=== PATIENT | male | born 1950 | race Caucasian/White ===

== ENCOUNTER 2017-08-07 07:23 | Day surgery (SDC) | payer MEDICARE, OTHER ==
[2017-08-07] MEDS ORDERED: LACTATED RINGERS 1,000 ML IV ONE (08:34)
--- NOTE | 2017-08-07 08:52 | HISTORY & PHYSICAL EXAMINATION ---
HPI - History of Present Illness HPI Comment/Other: Julio is here for colonoscopy for positive cologuard. Current Meds: LIPITOR 40 MG ORAL TABLET (ATORVASTATIN CALCIUM) Take one tablet by mouth daily at bedtime COREG 12.5 MG ORAL TABLET (CARVEDILOL) 1.5 tablet twice daily po) ZOLPIDEM TARTRATE 10 MG ORAL TABLET (ZOLPIDEM TARTRATE) Take one tablet at night as needed for insomnia COZAAR 25 MG ORAL TABLET (LOSARTAN POTASSIUM) 1 tablet po daily SPIRONOLACTONE 25 MG ORAL TABLET (SPIRONOLACTONE) Take one half tablet by mouth daily NITROSTAT 0.4 MG SUBLINGUAL TABLET SUBLINGUAL (NITROGLYCERIN) one tab every 5 minutes prn chest discomfort. up to 3 if no relief call 9-11 ASPIRIN EC 81 MG ORAL TABLET DELAYED RELEASE (ASPIRIN) 1 po daily Past Medical History: Reviewed history from 10/26/2015 and no changes required: COPD (ICD-496) (YRV88-U41.9) Ischemic cardiomyopathy (ICD-414.8) (PCK70-S22.5) Bronchitis, acute (ICD-466.0) (XAJ61-G36.9) ACTINIC KERATOSIS (ICD-702.0) (GEW89-M39.0) INSOMNIA, UNSPECIFIED (ICD-780.52) (XDD05-Y19.00) CARCINOMA, PROSTATE (ICD-185) (JRM84-W43) CONGESTIVE HEART FAILURE (ICD-428.0) (ZOH91-D94.9) CAD (ICD-414.00) (IKM23-Z81.10) Pacemaker HI Heartburn Past Surgical History: Reviewed history and no changes required: Prostatectomy Angioplasty Stents Family History Summary: Reviewed history Last on 05/15/2017 and no changes required:07/02/2017 Father (biol.) - Has a Hx of Other Medical Problems - Entered On: 12/15/2014 Mother (biol.) - Has Family History of Other Medical Problems - Hx of stroke - Entered On: 07/02/2017 General Comments - FH: Father: CVA Mother: CVA Brother: DM Social History: Reviewed history and no changes required: Risk Factors: Smoked Tobacco Use: Former smoker Cigarettes: Yes -- 1 pack(s) per day, Year quit: 2011 Years Since Last Quit: 6 Drug use: no Alcohol use: no Exercise: yes Times per week: 1 Type of Exercise: Treadmill Physical Exam General: well developed, well nourished, in no acute distress Lungs: clear bilaterally to A & P Heart: regular rate and rhythm, S1, S2 without murmurs, rubs, gallops, or clicks Abdomen: bowel sounds positive; abdomen soft and non-tender without masses, organomegaly, or hernias noted Pulses: pulses normal in all 4 extremities Extremities: no clubbing, cyanosis, edema, or deformity noted with normal full range of motion of all joints Cervical Nodes: no significant adenopathy Psych: alert and cooperative; normal mood and affect; normal attention span and concentration Impression & Recommendations: Problem # 1: positive cologaurd will proceed with colonoscopy PMH/PSH - Past Medical History Cardiovascular: positive: Hypertension, Coronary artery disease, HI, Other Respiratory: positive: None Endocrine/Autoimmune: positive: None GI: positive: Hemorrhoids : positive: Benign prostate hypertrophy HEENT: positive: Chronic hearing loss Psych: positive: Claustrophobia Musculoskeletal: Derm: positive: Other MRSA Hx?: No - Past Surgical History General: positive: Colonoscopy Cardiovascular: positive: Coronary stent, Cardiac catheterization, Vascular surgery, Angioplasty, Other HEENT: positive: Tonsil/Adenoidectomy Meds/Allgy - Home Medications Home Medications: Ambulatory Orders Medication Instructions Recorded Confirmed Aspirin [Adult Aspirin Regimen] 81 mg PO DAILY 08/06/17 08/07/17 Atorvastatin [Lipitor] 10 mg PO DAILY 08/06/17 08/07/17 Carvedilol 12.5 mg PO BID 08/06/17 08/07/17 Losartan [Cozaar] 50 mg PO BID 08/06/17 08/07/17 Spironolactone 0.5 mg PO DAILY 08/06/17 08/07/17 - Allergies Allergies/Adverse Reactions: Allergies Allergy/AdvReac Type Severity Reaction Status Date / Time lorazepam AdvReac Anxiety Verified 08/07/17 08:28 Exam - Vital Signs Vital Signs: Vital Signs x48h Temp Pulse Resp BP Pulse Ox 08/07/17 08:11 36.6 C 72 16 117/80 95
[2017-08-07] MEDS ORDERED: MIDAZOLAM 2 MG/2 ML VIAL IVP ONE (09:00)
[2017-08-07] MEDS ORDERED: fentaNYL 100 MCG/2 ML VIAL IVP ONE (09:00)
[2017-08-07 09:57] VITALS: BP 104/58
== END 2017-08-07 07:24 | disposition home or self-care (01) ==
LOC: SDS 07:23
PROVIDERS: ATTEND Surgery
PROC: 0DBP8ZX Excision of Rectum, Via Natural or Artificial Opening Endoscopic, Diagnostic (ICD-10-PCS; 2017-08-07)
PROC: 0DBM8ZX Excision of Descending Colon, Via Natural or Artificial Opening Endoscopic, Diagnostic (ICD-10-PCS; 2017-08-07)
PROC: 3E0H8GC Introduction of Other Therapeutic Substance into Lower GI, Via Natural or Artificial Opening Endoscopic (ICD-10-PCS; 2017-08-07)
PROC: 0DBH8ZX Excision of Cecum, Via Natural or Artificial Opening Endoscopic, Diagnostic (ICD-10-PCS; principal; 2017-08-07 09:00)
DX: D12.0 Benign neoplasm of cecum (principal); D12.8 Benign neoplasm of rectum; D12.4 Benign neoplasm of descending colon; K57.30 Diverticulosis of large intestine without perforation or abscess without bleeding; K64.8 Other hemorrhoids; J44.9 Chronic obstructive pulmonary disease, unspecified; I50.9 Heart failure, unspecified; I25.10 Atherosclerotic heart disease of native coronary artery without angina pectoris; Z95.0 Presence of cardiac pacemaker; Z79.82 Long term (current) use of aspirin; Z85.46 Personal history of malignant neoplasm of prostate
CPT/HCPCS: 45380; 45381; 45385; J7120

== ENCOUNTER 2019-06-10 09:05 | Outpatient (CLI) | payer MEDICARE ==
[2019-06-10] MEDS ORDERED: IOVERSOL 320 100 ML VIAL IVP ONE ×2 (09:44→09:52)
--- NOTE | 2019-06-11 04:10 | CT Report ---
Reason: HEMATURIA, HX OF PROSTATE CA Procedure Date: 06/10/2019 Accession Number: [id number] / [id number] Procedure: CT - IVP CPT Code: Final Report FULL RESULT: EXAM: CT ABDOMEN AND PELVIS WITHOUT AND WITH CONTRAST (CT IVP) EXAM DATE: 06/10/2019 10:06 AM. CLINICAL HISTORY: HEMATURIA, HX OF PROSTATE CA. COMPARISONS: None. TECHNIQUE: Routine helical imaging was performed through the kidneys, ureters and bladder in the precontrast and delayed phase. IV Contrast: OPTI 320 100ML. Reconstructions: Coronal and sagittal. In accordance with CT protocol optimization, one or more of the following dose reduction techniques were utilized for this exam: automated exposure control, adjustment of mA and/or KV based on patient size, or use of iterative reconstructive technique. FINDINGS: Lung Bases: Possible emphysema. Calcified left ventricular aneurysm. Liver: No focal lesion identified. Gallbladder/Bile Ducts: Unremarkable. Spleen: Normal. Pancreas: Normal. Adrenal Glands: Normal. Kidneys/Bladder: Right Kidney/Ureter: No renal or ureteral stones. No hydronephrosis or hydroureter. No masses. Left Kidney/Ureter: No renal or ureteral stones. No hydronephrosis or hydroureter. Small cyst. No masses. Bladder: No stones. No wall thickening or mass. Peritoneal Cavity/Bowel: No bowel obstruction seen. No free air or free fluid. Colonic diverticula. No diverticulitis identified. No lymphadenopathy seen. Appendix appears normal. No masses or acute inflammatory process. Pelvic Organs: Status post prostatectomy. Vasculature: Severe atherosclerosis. Infrarenal aortic ectasia measuring up to 2.7 cm. High-grade stenosis or occlusion suspected in the iliac arteries bilaterally. 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 There probably are bilateral common iliac stents. Bones: Degenerative changes in the spine. Other: None. IMPRESSION: 1. No urinary tract stones, masses, or obstruction identified. 2. Status post prostatectomy. 3. Calcified left ventricular aneurysm. RADIA
== END 2019-06-10 09:06 | disposition home or self-care (01) ==
LOC: DI 09:05
PROVIDERS: ATTEND Family Medicine
DX: R31.9 Hematuria, unspecified (principal); Z85.46 Personal history of malignant neoplasm of prostate; Z90.79 Acquired absence of other genital organ(s); I25.3 Aneurysm of heart; I77.819 Aortic ectasia, unspecified site
CPT/HCPCS: 74178; Q9967

== ENCOUNTER 2019-10-29 04:48 | Outpatient (CLI) | payer MEDICARE | END 2019-10-29 04:49 | disposition critical access hospital (66) | LOC: EMS 04:48 | PROVIDERS: ATTEND Surgery | DX: R06.02 Shortness of breath (principal) | CPT/HCPCS: A0425; A0429 ==

== ENCOUNTER 2019-10-29 05:05 | Inpatient (IN) | payer MEDICARE ==
[2019-10-29] MEDS ORDERED: ALBUTEROL NEB 2.5 MG/3 ML INH ONE (05:16)
[2019-10-29] MEDS ORDERED: IPRATROPIUM 0.2 MG/ML NEB INH STA (05:16)
--- NOTE | 2019-10-29 05:21 | ED Physician Documentation ---
History of Present Illness - Stated complaint Stated Complaint: SOA - Chief complaint Chief Complaint: Resp - Additonal information Additional information: This is a 68-year-old male with a history of heart failure with ejection fraction reported at 25%, status post defibrillator placement, left-sided femoral bypass, history of OR, COPD, who presents with shortness of breath. Patient states that he woke up around an hour ago with his breathing feeling much worse than usual. He denies chest pain, leg pain, or leg swelling beyond his baseline mild left-sided swelling which is been present since his femoral bypass surgery. He denies fever. He has a chronic mild intermittent cough, no changes to this. He used a nebulizer treatment at home and this did improve his breathing mildly. He denies any history of blood clots. Review of Systems Constitutional: denies: Fever Throat: denies: Dental pain / toothache Cardiac: denies: Chest pain / pressure Respiratory: reports: Dyspnea GI: denies: Abdominal Pain Skin: denies: Rash Musculoskeletal: denies: Extremity pain Neurologic: denies: Generalized weakness PD PAST MEDICAL HISTORY - Past Medical History Cardiovascular: Hypertension, Coronary artery disease, OR, Other Respiratory: None Endocrine/Autoimmune: None GI: Hemorrhoids : Benign prostate hypertrophy HEENT: Chronic hearing loss Psych: Claustrophobia Musculoskeletal:  Derm: Other - Past Surgical History General: Colonoscopy Cardiovascular: Coronary stent, Cardiac catheterization, Vascular surgery, Angioplasty, Other HEENT: Tonsil/Adenoidectomy - Present Medications Home Medications: Ambulatory Orders Medication Instructions Recorded Confirmed Aspirin [Adult Aspirin Regimen] 81 mg PO DAILY 08/06/17 10/29/19 Atorvastatin [Lipitor] 10 mg PO DAILY 08/06/17 10/29/19 Carvedilol 12.5 mg PO BID 08/06/17 10/29/19 Spironolactone 0.5 tab PO DAILY 08/06/17 10/29/19 Atorvastatin Calcium [Lipitor] 40 mg DAILY 10/29/19 10/29/19 Carvedilol 0.5 tab BID 10/29/19 10/29/19 Simvastatin [Zocor] 40 mg DAILY 10/29/19 10/29/19 - Allergies Allergies/Adverse Reactions: Allergies Allergy/AdvReac Type Severity Reaction Status Date / Time lorazepam AdvReac Anxiety Verified 08/07/17 08:28 PD ED PE NORMAL - Vitals Vital signs reviewed: Yes - General General: Alert and oriented X 3 - HEENT HEENT: PERRL - Neck Neck: Supple, no meningeal sign - Cardiac Cardiac: RRR - Respiratory Respiratory: Other (Tachypneic, slightly increased work of breathing, there are expiratory wheezes on the right posterior michael.) - Abdomen Abdomen: Normal bowel sounds, Soft, Non tender, Non distended - Derm Derm: Warm and dry - Extremities Extremities: No deformity, Other (Trace edema on bilateral legs) - Neuro Neuro: Alert and oriented X 3 - Psych Psych: Normal mood, Normal affect Results - Vitals Vitals: Vital Signs - 24 hr 10/29/19 10/29/19 10/29/19 05:06 06:18 06:32 Temperature 36.5 C Heart Rate 110 H 86 86 Respiratory 28 H 18 Rate Blood Pressure 150/98 H 132/119 H O2 Saturation 100 98 10/29/19 10/29/19 06:48 07:00 Temperature Heart Rate 79 91 Respiratory 23 24 Rate Blood Pressure 105/68 114/76 O2 Saturation 99 99 Oxygen O2 Source BIPAP Oxygen Flow Rate 6 - EKG (time done) 5:18 Other comments: Other comments (There is 1 to 1.[address] elevation in V2 and V3 which is discordant with the QRS. There is questionable slight 0.[address] elevation in aVL, but movement artifact obscures fine detailed evaluation. There are T wave inversions in the lateral leads I and V6. We will repeat within 15 minutes. No past EKG for comparison.) 5:51 Other comments: Other comments (Rate 85, rhythm sinus, there is 0.[address] or [address] Elevation in aVL, there is [address] elevation in V3, within normal limits and discordant. There is [address] depression in the inferior leads. Does not meet STEMI criteria, but is concerning for ischemia.QTc 475.) - Labs Labs: Laboratory Tests 10/29/19 10/29/19 10/29/19 05:18 05:18 05:18 WBC 13.2 H RBC 4.05 L Hgb 12.1 L Hct 37.5 L MCV 92.6 MCH 29.9 MCHC 32.3 RDW 14.9 Plt Count 281 MPV 10.2 Neut # (Auto) 9.4 H Lymph # (Auto) 1.7 [place] # (Auto) 1.2 H Eos # (Auto) 0.7 Baso # (Auto) 0.1 Absolute Nucleated RBC 0.00 Nucleated RBC % 0.0 PT 12.7 H INR 1.1 Sodium 137 Potassium 4.3 Chloride 103 Carbon Dioxide 24 Anion Gap 10.0 BUN 22 H Creatinine 1.5 H Estimated GFR (MDRD) 46 L Glucose 131 H Calcium 8.7 Total Bilirubin 0.7 AST 16 ALT 14 Alkaline Phosphatase 64 Troponin I High Sens B-Natriuretic Peptide Total Protein 7.4 Albumin 3.8 Globulin 3.6 Albumin/Globulin Ratio 1.1 Lipase 20 L 10/29/19 10/29/19 05:18 05:18 WBC RBC Hgb Hct MCV MCH MCHC RDW Plt Count MPV Neut # (Auto) Lymph # (Auto) [place] # (Auto) Eos # (Auto) Baso # (Auto) Absolute Nucleated RBC Nucleated RBC % PT INR Sodium Potassium Chloride Carbon Dioxide Anion Gap BUN Creatinine Estimated GFR (MDRD) Glucose Calcium Total Bilirubin AST ALT Alkaline Phosphatase Troponin I High Sens 13.7 B-Natriuretic Peptide 1439 H Total Protein Albumin Globulin Albumin/Globulin Ratio Lipase - Rads (name of study) POCUS echo Radiology: Other (Moderately reduced left ejection fraction. B-lines are present on the bilateral anterior lung michael.) CXR Radiology: Other (Mild pulmonary edema.) PD MEDICAL DECISION MAKING - ED course Complexity details: considered differential (CHF, pneumonia, pneumothorax, ACS, dysrhythmia, pulmonary embolism, URI/coronavirus) ED course: Patient arrived and he is tachypneic, with increased work of breathing, he is on a nasal cannula at 6 L/min and satting in the low 90s but looks uncomfortable. EKG shows sinus rhythm with questionable ST elevation in aVL, however patient has no chest pain. Chest x-ray shows pulmonary edema he is hypertensive, and on his labs his BNP is elevated. At 6:10 AM, I reviewed the patient's case and EKG with Dr. Vazquez. Given the patient has no chest pain, and his EKG has only very slight less than [address] elevation in aVL, he feels that this is likely more strain related to the heart failure, and agrees that this does not appear to be a STEMI at this time. He recommends blood pressure control, such as with nitroglycerin and/or hydralazine, lasix, and agrees with bipap if warranted. Patient continued to have increased work of breathing so he was placed on BiPAP, and after nitroglycerin and Lasix he had improvement in his work of breathing. He continues to be chest pain-free. He was taken off the BiPAP and is doing well on a nasal cannula at this time. Although patient does have a history of prostate cancer which makes him at risk for pulmonary embolism, his lack of chest pain, as well as lack of any new unilateral leg swelling, as well as his improvement with therapies and his results today consistent with heart failure exacerbation make pulmonary embolism unlikely at this time. He has had no fever, no URI symptoms, coronavirus or infectious cause of his shortness of breath seems less likely at this time. Patient was admitted for further evaluation and treatment. Dr. Frausto accepting. Departure - Departure Disposition: [facility] DC/Xfer Clinical Impression: CHF exacerbation Qualifiers: Heart failure type: systolic Qualified Code(s): I50.23 - Acute on chronic systolic (congestive) heart failure Condition: Stable
[2019-10-29 05:23] LABS: BASOPHILS # (AUTO) 0.1 10^3/uL (0.0-0.1); BASOPHILS % (AUTO) 0.7 %; EOSINOPHILS # (AUTO) 0.7 10^3/uL (0.0-0.7); EOSINOPHILS % (AUTO) 5.6 %; HGB - HEMOGLOBIN 12.1 g/dL (14.0-18.0); LYMPHOCYTES # (AUTO) 1.7 10^3/uL (1.5-3.5); MEAN CORPUSCULAR HEMOGLOBIN 29.9 pg (27.0-31.0); MEAN CORPUSCULAR HGB CONC 32.3 g/dL (32.0-36.0); MEAN CORPUSCULAR VOLUME 92.6 fL (80.0-94.0); MEAN PLATELET VOLUME 10.2 fL (7.4-11.4); MONOCYTES # (AUTO) 1.2 10^3/uL (0.0-1.0); MONOCYTES % (AUTO) 9.1 %; NEUTROPHILS # (AUTO) 9.4 10^3/uL (1.5-6.6); NEUTROPHILS % (AUTO) 71.1 %; PLT - PLATELET COUNT 281 10^3/uL (130-450); RED BLOOD COUNT 4.05 10^6/uL (4.70-6.10); RED CELL DISTRIBUTION WIDTH 14.9 % (12.0-15.0); WHITE BLOOD COUNT 13.2 x10^3/uL (4.8-10.8)
[2019-10-29 05:29] LABS: INR 1.1 (0.8-1.2); PT - PROTHROMBIN TIME 12.7 secs (9.9-12.6)
[2019-10-29 05:33] LABS: ALBUMIN 3.8 g/dL (3.2-5.5); ALBUMIN/GLOBULIN RATIO 1.1 (1.0-2.2); BILIRUBIN,TOTAL 0.7 mg/dL (0.2-1.0); CALCIUM 8.7 mg/dL (8.5-10.3); CREATININE 1.5 mg/dL (0.6-1.2); TOTAL PROTEIN 7.4 g/dL (6.7-8.2)
--- NOTE | 2019-10-29 05:36 | XRAY Report ---
Reason: Chest Pain Procedure Date: 10/29/2019 Accession Number: [id number] / [id number] Procedure: XR - Chest 1 View X-Ray CPT Code: 59593 Final Report FULL RESULT: EXAM: CHEST RADIOGRAPHY EXAM DATE: 10/29/2019 05:25 AM CLINICAL HISTORY: Chest pain. COMPARISON: CHEST ONE VIEW 07/17/2019 9:51 AM. TECHNIQUE: 1 view. FINDINGS: Lungs/Pleura: Diffuse mild interstitial opacities. Small effusions. No gross pneumothorax. Mediastinum: Mild cardiomegaly. No mediastinal shift. Other: Stable left pacer/AICD. IMPRESSION: Mild CHF. RADIA
[2019-10-29] MEDS ORDERED: FUROSEMIDE 40 MG/4 ML VIAL IVP STA (05:45)
[2019-10-29] MEDS ORDERED: NITROGLYCERIN SL 0.4 MG TABLET SL STA (06:13)
[2019-10-29] MEDS ORDERED: SODIUM CHLORIDE FLUSH 0.9% 10 ML SYRINGE IVP PRN (08:20)
[2019-10-29] MEDS ORDERED: MORPHINE 2 MG/ML CARPUJECT IVP PRN (08:20)
[2019-10-29] MEDS ORDERED: LEVALBUTEROL 1.25 MG/3 ML NEB INH PRN (08:28)
[2019-10-29] MEDS ORDERED: LEVALBUTEROL 1.25 MG/3 ML NEB INH STA (08:28)
[2019-10-29] MEDS ORDERED: CARVEDILOL PO SCH (09:00)
[2019-10-29] MEDS ORDERED: ASPIRIN EC 81 MG TABLET PO SCH (09:00)
--- NOTE | 2019-10-29 10:28 | PHARMACY PROGRESS NOTE ---
- Best Possible Medication History Admit Date and Time: 10/29/19 0820 Processed by: Nursing Medication History completed: Yes Secondary Source(s): Pharmacy records, Insurance records As the person ultimately responsible for medication therapy, providers are able to order a medication from an existing home medication list in [facility] via the "Reconcile Routine" prior to Confirmation of that medication by it support technician. Such practice is discouraged except when the physician, in their clinical judgment, deems that a medical need exists for a medication without regard to previous use.
[2019-10-29] MEDS: carvediloL 12.5 MG TABLET PO SCH ×2 (11:15→20:42)
[2019-10-29] MEDS: ASPIRIN 325 MG TABLET PO SCH (11:15)
[2019-10-29] MEDS: SPIRONOLACTONE 25 MG TABLET PO SCH (11:17)
[2019-10-29] MEDS: NITROGLYCERIN 2% PASTE TOP SCH ×3 (11:18→22:00)
[2019-10-29] MEDS: polyethylene glycoL 3350 17 GM PACKET PO SCH (11:22)
[2019-10-29] MEDS: FUROSEMIDE 40 MG/4 ML VIAL IVP SCH (13:58)
[2019-10-29] MEDS: ACETAMINOPHEN 325 MG TABLET PO PRN (13:58)
--- NOTE | 2019-10-29 14:32 | HISTORY & PHYSICAL EXAMINATION ---
DATE OF SERVICE: 10/29/2019 Physician: Kari Frausto MD HISTORY OF PRESENT ILLNESS: This is a 68-year-old white male with a history of an WA approximately 10 years ago, history of peripheral vascular disease with femoral bypass done approximately 4 months ago and COPD, who is an ex-smoker. The patient presents with sudden shortness of breath that occurred when he woke up in the middle of the night and was coming back from the bathroom. He tried to lay in bed and was very orthopneic and needed to sit bolt upright. Since these feelings did not resolve, he called an ambulance and came to the Emergency Room. He was found to be hypertensive; no fever was found and chest x-ray showed pulmonary edema. He received IV Lasix, nitroglycerin and required BiPAP for oxygen supplementation. The Emergency Room doctor called the covering [employer] Inspector of this patient, who indicated that with the first troponin that was normal, the patient could be managed here for [id number] systolic heart failure. The patient is being admitted for flash pulmonary edema and is ruling in for an acute NSTEMI. PAST MEDICAL HISTORY: Prior WA "from a maker" he said, ejection fraction 25%; patient has a biventricular defibrillator according to his description. He has COPD, is an ex-smoker who quit about 10 years ago. The patient does daily 5 minutes of treadmill exercise in his house. The patient underwent recent fem- fem bypass 4 months ago and states that the recovery from this has been rather difficult with prolonged pain, especially when walking. The patient last saw his Z[employer] Inspector in 03/2019 and everything was stable. He cannot remember if he had any preop workup by Cardiology or Pulmonary before the fem-fem bypass done in 07/2019. The patient remembers having PFTs done sometime in 2019 and was recently started on an inhaler. The patient is compliant with his medications. ALLERGIES: LORAZEPAM. MEDICATIONS: 1. Losartan 25 mg b.i.d. 2. Lipitor 40 mg every night. 3. Spironolactone 12.5 mg daily. 4. Carvedilol 18.75 mg b.i.d. 5. Baby aspirin daily. 6. He is on an inhaler but cannot remember the name, which he uses b.i.d. FAMILY HISTORY: Positive history of early heart disease in his father and his brother. No other inherited diseases that he knows of. SOCIAL HISTORY: The patient is an ex-smoker who quit in 2010. The patient lives with his . 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 He exercises daily as described above. He drinks no alcohol whatsoever. He uses no recreational drugs. REVIEW OF SYSTEMS: The patient states that when he got the Lasix and nitroglycerin in the Emergency Room and had improvement in his air hunger with the BiPAP, he then developed a very mild chest heaviness, which he describes as a /10. It was in the same area but much milder than the chest pain he had with his WA in 2010, which he had described as a 10/10. There has been no recent dyspnea on exertion, leg edema, change of medications, travel, fever, cough, nausea, vomiting or diarrhea. A comprehensive review of systems was performed and the pertinent positives are listed; the rest are negative. PHYSICAL EXAMINATION: GENERAL: Elderly white male. He is currently in no distress, on nasal cannula oxygen. VITAL SIGNS: Blood pressure on presentation was 150/98 with a heart rate of 110 in sinus tachycardia. Currently, his blood pressure is 144/73 with a heart rate of 80 in sinus rhythm; room air saturation is 96% but respiratory rate is 24. Respiratory rate improved to 18 when he was put on 2 liters nasal cannula. HEENT: Unremarkable except for poor dentition. NECK: No JVD in a vertical position. No carotid bruits. CHEST: Bibasilar rales. Clear above that. He has increased AP diameter. HEART: Positive S4. Normal S1, S2. No heart murmurs noted. There is no RV heave. ABDOMEN: Soft, nontender. Positive bowel sounds. No organomegaly. EXTREMITIES: No clubbing, cyanosis or edema. NEUROLOGIC: Grossly intact. LABORATORY DATA: Sodium 137, potassium 4.3, BUN is 22, creatinine 1.5. Troponin high sensitivity is 13.7 and the next one is 374. BNP 1439. White blood count 13, hemoglobin 12 with a normal MCV, platelet count normal at 281. INR normal at 1.1. DIAGNOSTIC DATA: Chest x-ray showed CHF and mild cardiomegaly. EKG: Sinus rhythm, rate is 92, left IVCD, deep lateral Q-waves are noted and QS in V1 and V2 with poor R-wave progression V3 through V5. He has horizontal ST-depressions in leads II, III, AVF and deeply inverted T-wave in lead V5 and V6. He has minimal J-point elevation in leads V1 through V3. (This may indicate an aneurysm of the anterior apical wall). There are no prior EKGs for comparison. IMPRESSION/DIAGNOSES 1. Flash pulmonary edema. 2. Acute [id number]-wvookgwbg myocardial infarction. 3. Fgrgn-ud-znncdmp systolic heart failure with known left ventricular ejection fraction of 25% per the patient. 4. Abnormal EKG with evidence of prior myocardial infarction and also possible LV aneurysm. 5. Acute kidney injury. 6. History of peripheral vascular disease. 7. History of chronic obstructive pulmonary disease, no current exacerbation. PLAN: Admit the patient to a Med/Surg bed on telemetry. Cycle his troponins. Obtain an Echo to establish LV and RV contractility and PA pressure. Give the patient 4 baby aspirin now, since he has just had the results of the significant increase in troponin and is ruling in for an WA. Start nitro paste topically. Start therapeutic Lovenox dosing for acute WA management for 48 hours, at a renally adjusted dose of 0.5 mg/kg. Continue with his beta deny, SHYANN inhibitor, and Spironolactone. Begin IV b.i.d. Lasix. Follow I's and O's and daily weights. Follow electrolytes and daily magnesium. I will contact his [employer] Inspector regarding a potential transfer for elective coronary angiography. Check lipids and treat per guidelines. Continue with his current statin dose now. CODE STATUS: FULL CODE. DEEP VENOUS THROMBOSIS PROPHYLAXIS: SCDs. ATTESTATION: The patient is expected to be discharged or transferred to another facility within 96 hours: Yes. cc: Amarjit Jessica MD TD: 10/29/2019 13:48 MTDD
[2019-10-29] MEDS: LEVALBUTEROL 1.25 MG/3 ML NEB INH SCH ×3 (15:13→20:57)
[2019-10-29] MEDS: SODIUM CHLORIDE FLUSH 0.9% 10 ML SYRINGE IVP SCH ×2 (16:14→23:48)
--- NOTE | 2019-10-29 16:51 | HISTORY & PHYSICAL EXAMINATION ---
DATE OF SERVICE: 10/29/2019 Physician: Kari Frausto MD ADDENDUM: After discussion with the Pharmacist, at this creatinine clearance, his Lovenox dose can be 1 mg/kg which I will plan for 48 hours, then changed to prophylactic dose of 40 mg sq daily. TD: 10/29/2019 16:44 MTDD
[2019-10-29] MEDS: FAMOTIDINE 20 MG TABLET PO SCH (20:43)
[2019-10-29] MEDS: ENOXAPARIN 80 MG/0.8 ML SYRINGE SUBQ SCH (20:43)
[2019-10-29] MEDS ORDERED: ENOXAPARIN 30 MG/0.3 ML SYRINGE SUBQ SCH (21:00)
[2019-10-29] MEDS ORDERED: ATORVASTATIN 40 MG TABLET PO SCH (21:00)
[2019-10-30] MEDS: NITROGLYCERIN 2% PASTE TOP SCH ×3 (04:01→16:13)
[2019-10-30 05:45] LABS: CALCIUM 8.4 mg/dL (8.5-10.3); CREATININE 1.6 mg/dL (0.6-1.2); MAGNESIUM 1.7 mg/dL (1.7-2.8)
[2019-10-30] MEDS: FUROSEMIDE 40 MG/4 ML VIAL IVP SCH ×2 (05:54→13:22)
[2019-10-30] MEDS: ACETAMINOPHEN 325 MG TABLET PO PRN (06:58)
[2019-10-30] MEDS: LEVALBUTEROL 1.25 MG/3 ML NEB INH SCH ×3 (09:13→14:29)
[2019-10-30] MEDS: SPIRONOLACTONE 25 MG TABLET PO SCH (09:52)
[2019-10-30] MEDS: FAMOTIDINE 20 MG TABLET PO SCH (09:52)
[2019-10-30] MEDS: ASPIRIN 325 MG TABLET PO SCH (09:53)
[2019-10-30] MEDS: ENOXAPARIN 80 MG/0.8 ML SYRINGE SUBQ SCH (09:54)
[2019-10-30] MEDS: carvediloL 12.5 MG TABLET PO SCH (09:54)
[2019-10-30] MEDS: polyethylene glycoL 3350 17 GM PACKET PO SCH (09:55)
[2019-10-30] MEDS: SODIUM CHLORIDE FLUSH 0.9% 10 ML SYRINGE IVP SCH ×2 (09:56→17:33)
[2019-10-30] MEDS ORDERED: POTASSIUM CHLORIDE 20 MEQ TABLET PO SCH (12:24)
--- NOTE | 2019-10-30 16:11 | DISCHARGE SUMMARY ---
Discharge Summary Admit Date: 10/29/19 Discharge Date: 10/30/19 Discharging Provider: Dr Kari Frausto Primary Care Provider: Dr Wayne Jessica Code Status: Attempt Resuscitation Condition at Discharge: Stable Discharge Disposition: 02 Transfer Acute Care Hosp Discharge Facility Name: [facility] - DIAGNOSES Discharge Diagnoses with Status of Each Condition: see below - HPI History of Present Illness: This is a 68-year-old white male with history of prostate cancer, CAD, [place] in 2010 with stenting, subsequent EF 25% and he has a defibrillator. His last stress test was approximately 4 years ago. He also has COPD and underwent recent PFTs, results are not known but he was started on an inhaler several months ago. The patient had successful femoral revascularization for an occluded left femoral artery just done July 2019. The patient is compliant with his medications, and is able to exercise on his home treadmill 5 minutes daily. The patient presented after awakening with sudden orthopnea and came to the ER and was found to be in flash pulmonary edema. EKG showed an anterior scar vs anterior anuerysm, and non-specific changes. First high sensitivity troponin was 13 and the next went to 374. He was admitted for managing flash pulmonary edema and acute NSTEMI. - HOSPITAL COURSE Hospital Course: 1) Flash pulm edema His oxygen saturation and orthopnea symptoms improved with iv diuretics. He needed supplemental oxygen on BIPAP in the ER, but had improved to be on nasal cannula supplemental oxygen later that day. 2) Acute NSTEMI His hs-troponin went from 13>> 374>> 298. He was put on theraputic Lovenox bid for 48 hours, a statin, aspirin daily, and B-deny continued. An Echo was done that showed worsening of his LVEF to 15%. He was accepted for a coronary angio by his [facility] and then accepted in transfer by the Hospitalist at [facility] and transferred there in stable condition. 3) Acute on chronic systolic heart failure He got iv diuretics, Spironolactone was started, and he was kept on his B- deny and ARB. The BNP wenr from 1439 to 669 the following day. 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 5) FRANSICO The creat was monitored closely, it went from 1.5>> 1.6 while here. 6) PVD His meds for CAD also treat the PVD. 7) Hx COPD He had no exacerbation of COPD while here. 8) Hx prostate CA As per Hx. - ALLERGIES Allergies/Adverse Reactions: Allergies Allergy/AdvReac Type Severity Reaction Status Date / Time lorazepam AdvReac Anxiety Verified 08/07/17 08:28 - MEDICATIONS Home Medications: Ambulatory Orders Medication Instructions Recorded Confirmed Aspirin [Adult Aspirin Regimen] 81 mg PO DAILY 08/06/17 10/29/19 Carvedilol 18.75 mg PO BID 08/06/17 10/29/19 Spironolactone 12.5 mg PO DAILY 08/06/17 10/29/19 Atorvastatin Calcium 40 mg PO QPM 10/29/19 10/29/19 Losartan Potassium 25 mg PO BID 10/29/19 10/29/19 - PHYSICAL EXAM AT DISCHARGE General Appearance: positive: No acute distress, Alert Eyes Bilateral: positive: Normal inspection, EOMI ENT: positive: ENT inspection nml, No signs of dehydration Neck: positive: Nml inspection, No JVD Respiratory: positive: No respiratory distress Cardiovascular: positive: Regular rate & rhythm, No murmur Abdomen: positive: Non-tender, No organomegaly Skin: positive: Color nml Extremities: positive: No pedal edema, Other (Miuscle wasting) Neurologic/Psychiatric: positive: Oriented x3 (Non-focal exam) - LABS Result Diagrams: 10/29/19 05:18 10/30/19 04:30 - DIAGNOSTIC IMAGING Diagnostic Imaging Results: Final report reviewed - FOLLOW UP Follow Up: This will be determined after his stay at [facility]. - TIME SPENT Time Spent in Discharge (Minutes): 60
--- NOTE | 2019-10-30 16:11 | Discharge Plan ---
Discharge Plan Problem Reviewed?: Yes Disposition: 02 Transfer Acute Care Hosp Condition: Stable No Smoking: If you smoke, Please STOP! Call for help. Follow-up with: Amarjit Jessica MD [Primary Care Provider] -
[2019-10-30 17:13] VITALS: BP 137/73
[2019-10-30] MEDS ORDERED: ATORVASTATIN 40 MG TABLET PO SCH (21:00)
[2019-11-01] MEDS ORDERED: ENOXAPARIN 30 MG/0.3 ML SYRINGE SUBQ SCH (09:00)
[2019-11-01] MEDS ORDERED: ENOXAPARIN 40 MG/0.4 ML SYRINGE SUBQ SCH (09:00)
== END 2019-10-30 17:45 | disposition short-term general hospital (02) | DRG 280 ==
LOC: EDUNIT# → ED 05:05 → MS3 08:20
PROVIDERS: ADMIT Internal Medicine; ATTEND Internal Medicine
DX: I21.4 Non-ST elevation (NSTEMI) myocardial infarction (principal); I50.23 Acute on chronic systolic (congestive) heart failure; I25.3 Aneurysm of heart; N17.9 Acute kidney failure, unspecified; I11.0 Hypertensive heart disease with heart failure; J44.9 Chronic obstructive pulmonary disease, unspecified; I25.10 Atherosclerotic heart disease of native coronary artery without angina pectoris; I73.9 Peripheral vascular disease, unspecified; N40.0 Benign prostatic hyperplasia without lower urinary tract symptoms; F40.240 Claustrophobia; H91.90 Unspecified hearing loss, unspecified ear; Z79.51 Long term (current) use of inhaled steroids; Z79.82 Long term (current) use of aspirin; I25.2 Old myocardial infarction; Z95.810 Presence of automatic (implantable) cardiac defibrillator; Z95.5 Presence of coronary angioplasty implant and graft; Z95.828 Presence of other vascular implants and grafts; Z85.46 Personal history of malignant neoplasm of prostate; Z87.891 Personal history of nicotine dependence
CPT/HCPCS: 36415; 71045; 80048; 80053; 83690; 83735; 83880; 84484; 85025; 85610; 93005; 93306; 94640; 94660; 96374; 99284; 99285; A9270; J1650

== ENCOUNTER 2019-10-30 17:49 | Outpatient (CLI) | payer MEDICARE | END 2019-10-30 17:50 | disposition short-term general hospital (02) | LOC: EMS 17:49 | PROVIDERS: ATTEND Surgery | DX: J81.0 Acute pulmonary edema (principal); I21.4 Non-ST elevation (NSTEMI) myocardial infarction | CPT/HCPCS: A0425; A0426 ==

== ENCOUNTER 2020-06-12 18:20 | Outpatient (CLI) | payer MEDICARE | END 2020-06-12 18:21 | disposition home or self-care (01) | LOC: COV 18:20 | PROVIDERS: ATTEND Family Medicine | DX: R50.9 Fever, unspecified (principal); R05 Cough; R06.02 Shortness of breath; M79.10 Myalgia, unspecified site; R53.83 Other fatigue; Z20.828 Contact with and (suspected) exposure to other viral communicable diseases ==

== ENCOUNTER 2020-06-19 10:31 | Emergency (ER) | payer MEDICARE ==
--- NOTE | 2020-06-19 12:12 | ED Physician Documentation ---
PD HPI ABD PAIN - Stated complaint Stated Complaint: MALE - Chief complaint Chief Complaint: Abd Pain - History obtained from History obtained from: Patient - Additional information Additional information: He had femoral bypass surgery sometime ago and that caused what sounds like ureteral reflux or hydronephrosis on the right and he has had a stent in place for quite some time now it was replaced 4 weeks ago. Over the last 4 days he intermittently has severe suprapubic pain and profound urgency without significant back pain. He does have cloudy urine. No fevers. Review of Systems Ten Systems: 10 systems reviewed and negative Constitutional: reports: Reviewed and negative Cardiac: reports: Reviewed and negative Respiratory: reports: Reviewed and negative PD PAST MEDICAL HISTORY - Past Medical History Cardiovascular: Congestive heart failure, Hypertension, High cholesterol, Coronary artery disease, [place], Other Respiratory: COPD, Shortness of breath Endocrine/Autoimmune: None GI: Hemorrhoids : Benign prostate hypertrophy, Other HEENT: Chronic hearing loss Psych: Claustrophobia Derm: Other - Past Surgical History Past Surgical History: Yes General: Colonoscopy Cardiovascular: Coronary stent, Cardiac catheterization, Vascular surgery, Angioplasty, Other HEENT: Tonsil/Adenoidectomy - Present Medications Home Medications: Ambulatory Orders Medication Instructions Recorded Confirmed Aspirin [Adult Aspirin Regimen] 81 mg PO DAILY 08/06/17 10/29/19 Carvedilol 18.75 mg PO BID 08/06/17 10/29/19 Spironolactone 12.5 mg PO DAILY 08/06/17 10/29/19 Atorvastatin Calcium 40 mg PO QPM 10/29/19 10/29/19 Losartan Potassium 25 mg PO BID 10/29/19 10/29/19 Phenazopyridine HCl [Pyridium] 200 mg PO TID PRN #20 tablet 06/19/20 - Allergies Allergies/Adverse Reactions: Allergies Allergy/AdvReac Type Severity Reaction Status Date / Time lorazepam AdvReac Anxiety Verified 06/19/20 10:38 - Social History Does the pt smoke?: No Smoking Status: Former smoker Does the pt drink ETOH?: No Does the pt have substance abuse?: No - Immunizations Immunizations are current?: Yes - POLST Patient has POLST: No PD ED PE NORMAL - Vitals Vital signs reviewed: Yes - General General: Alert and oriented X 3, No acute distress - Abdomen Abdomen: Normal bowel sounds, Soft, Non tender, Other (Note made that bladder scan per tech is 19 mL) - Derm Derm: Normal color, Warm and dry - Extremities Extremities: No edema, No calf tenderness / cord - Neuro Neuro: Alert and oriented X 3, Normal speech Results - Vitals Vitals: Vital Signs - 24 hr 06/19/20 06/19/20 06/19/20 10:35 10:59 11:42 Temperature 35.8 C L 36.8 C Heart Rate 89 63 60 Respiratory 16 20 16 Rate Blood Pressure 112/63 136/67 H 124/64 O2 Saturation 98 99 99 06/19/20 13:15 Temperature Heart Rate 68 Respiratory 16 Rate Blood Pressure 133/73 H O2 Saturation 97 Oxygen O2 Source Room air - Labs Labs: Laboratory Tests 06/19/20 06/19/20 06/19/20 11:00 12:25 12:25 WBC 8.4 RBC 3.45 L Hgb 10.9 L Hct 32.4 L MCV 93.9 MCH 31.6 H MCHC 33.6 RDW 12.8 Plt Count 365 MPV 8.5 Neut # (Auto) 5.6 Lymph # (Auto) 1.2 L [place] # (Auto) 1.0 Eos # (Auto) 0.5 Baso # (Auto) 0.1 Absolute Nucleated RBC 0.00 Nucleated RBC % 0.0 Sodium 138 Potassium 4.6 Chloride 100 L Carbon Dioxide 25 Anion Gap 13.0 BUN 31 H Creatinine 1.6 H Estimated GFR (MDRD) 43 L Glucose 108 H Calcium 9.1 Urine Color YELLOW Urine Clarity CLOUDY Urine pH 6.0 Ur Specific [place] 1.020 Urine Protein 100 H Urine Glucose (UA) NEGATIVE Urine Ketones NEGATIVE Urine Occult Blood LARGE H Urine Nitrite NEGATIVE Urine Bilirubin NEGATIVE Urine Urobilinogen 0.2 (NORMAL) Ur Leukocyte Esterase LARGE H Urine RBC 6-10 H Urine WBC >25 H Ur Squamous Epith Cells NONE SEEN Urine Bacteria Moderate H Ur Microscopic Review INDICATED Urine Culture Comments INDICATED PD MEDICAL DECISION MAKING - ED course ED course: 69-year-old gentleman presents with what sounds like bladder spasms with 4-week old ureteral stent in place. Case was discussed by phone with Trsesa Titus on- call for his urologist who recommended checking a KUB and if okay treating symptomatically with Pyridium. NOTE: DR TITUS FEELS PYURIA IS EXPECTED AND DOES NOT NEED TREATMENT Departure - Departure Disposition: 01 Home, Self Care Clinical Impression: Bladder spasms Pain due to ureteral stent Qualifiers: Encounter type: initial encounter Qualified Code(s): T83.84XA - Pain due to genitourinary prosthetic devices, implants and grafts, initial encounter Condition: Good Record reviewed to determine appropriate education?: Yes Instructions: Stents Ureteral Prescriptions: Phenazopyridine HCl [Pyridium] 200 mg PO TID PRN #20 tablet PRN Reason: dysuria Comments: I spoke with Dr. Titus on-call for Dr. Pitt who recommended this medication. Your stent seems to be in place. Return if you worsen, or if you develop fever or significant back pain. Discharge Date/Time: 06/19/20 13:37
[2020-06-19 12:31] LABS: BASOPHILS # (AUTO) 0.1 10^3/uL (0.0-0.1); BASOPHILS % (AUTO) 0.6 %; EOSINOPHILS # (AUTO) 0.5 10^3/uL (0.0-0.7); EOSINOPHILS % (AUTO) 5.6 %; HGB - HEMOGLOBIN 10.9 g/dL (14.0-18.0); LYMPHOCYTES # (AUTO) 1.2 10^3/uL (1.5-3.5); LYMPHOCYTES % (AUTO) 13.9 %; MEAN CORPUSCULAR HEMOGLOBIN 31.6 pg (27.0-31.0); MEAN CORPUSCULAR HGB CONC 33.6 g/dL (32.0-36.0); MEAN CORPUSCULAR VOLUME 93.9 fL (80.0-94.0); MEAN PLATELET VOLUME 8.5 fL (7.4-11.4); MONOCYTES % (AUTO) 11.8 %; NEUTROPHILS # (AUTO) 5.6 10^3/uL (1.5-6.6); NEUTROPHILS % (AUTO) 67.4 %; PLT - PLATELET COUNT 365 10^3/uL (130-450); RED BLOOD COUNT 3.45 10^6/uL (4.70-6.10); RED CELL DISTRIBUTION WIDTH 12.8 % (12.0-15.0); WHITE BLOOD COUNT 8.4 x10^3/uL (4.8-10.8)
[2020-06-19 12:38] LABS: BILIRUBIN,URINE NEGATIVE (NEGATIVE); GLUCOSE, URINE (UA) NEGATIVE (NEGATIVE); KETONES,URINE (UA) NEGATIVE (NEGATIVE); LEUKOCYTE ESTERASE, URINE LARGE (NEGATIVE); NITRITE,URINE NEGATIVE (NEGATIVE); OCCULT BLOOD,URINE LARGE (NEGATIVE); PROTEIN,URINE 100 mg/dL (NEGATIVE); UROBILINOGEN,URINE 0.2 (NORMAL) E.U./dL (NORMAL)
[2020-06-19 12:39] LABS: CLARITY,URINE CLOUDY (CLEAR)
[2020-06-19 12:40] LABS: CALCIUM 9.1 mg/dL (8.5-10.3); CREATININE 1.6 mg/dL (0.6-1.2)
[2020-06-19 12:55] LABS: BACTERIA,URINE Moderate /HPF (None Seen); SQUAMOUS EPITHELIAL CELL,UR NONE SEEN (<= Few)
--- NOTE | 2020-06-19 13:16 | XRAY Report ---
PROCEDURE: Abdomen 1 View X-Ray INDICATIONS: check stent TECHNIQUE: 1 view of the abdomen were acquired. COMPARISON: CT IVP 06/10/2019 FINDINGS: Surgical changes and devices: A right ureteral double-J stent is seen in expected position. Multiple surgical clips are seen throughout the pelvis and the left paraspinal region. Bowel: No pneumoperitoneum. The bowel gas pattern is normal. Soft tissues: No masses; visualized solid organ contours appear normal in size. No suspicious abdom inal calcifications. Bones: No suspicious bony abnormalities. Degenerative changes are seen in the hips and spine. IMPRESSION: Right ureteral stent is in expected position. Reviewed by: Robles Collins MD on 06/19/2020 1:15 PM [facility] Approved by: Robles Collins MD on 06/19/2020 1:15 PM [facility] Station ID: [id number]
[2020-06-19 13:17] VITALS: BP 133/73
[2020-06-19] MEDS ORDERED: PHENAZOPYRIDINE 100 MG TABLET PO STA (13:20)
== END 2020-06-19 13:37 | disposition home or self-care (01) ==
LOC: ED 10:31
DX: N32.89 Other specified disorders of bladder (principal); T83.84XA Pain due to genitourinary prosthetic devices, implants and grafts, initial encounter; Y83.8 Other surgical procedures as the cause of abnormal reaction of the patient, or of later complication, without mention of misadventure at the time of the procedure; I10 Essential (primary) hypertension; Z79.82 Long term (current) use of aspirin; Z87.891 Personal history of nicotine dependence
CPT/HCPCS: 36415; 74018; 80048; 81001; 85025; 99284; A9270; 81003; 87086

== ENCOUNTER → 2022-06-26 | Outpatient (CLI) | payer MEDICARE | END | disposition short-term general hospital (02) | LOC: EMS 23:46 | DX: R07.89 Other chest pain (principal); R06.02 Shortness of breath | CPT/HCPCS: A0425; A0427 ==

== ENCOUNTER 2022-11-25 02:09 | Outpatient (CLI) | payer MEDICARE | END 2022-11-25 02:10 | disposition short-term general hospital (02) | LOC: EMS 02:09 | DX: I21.3 ST elevation (STEMI) myocardial infarction of unspecified site (principal) | CPT/HCPCS: A0425; A0427 ==

== ENCOUNTER 2023-06-12 10:20 | Outpatient (CLI) | payer MEDICARE ==
--- NOTE | 2023-06-12 15:28 | CT Report ---
PROCEDURE: Low Dose Lung Cancer Screen INDICATIONS: HIST OF SMOKING TECHNIQUE: A CT scan of the chest was performed. Intravenous contrast media was not administered. Images were re corded and evaluated at appropriate window settings. Reformats: axial MIP of the chest, coronal and s agittal. For radiation dose reduction, the following was used: automated exposure control, adjustment of mA and/or kV according to patient size. COMPARISON: None. FINDINGS: Image quality: Excellent. Prior cancer history: No Lungs and pleura: No suspicious pulmonary nodules or consolidation. Moderate apical predominant centr ilobular and paraseptal emphysema with biapical pleural-parenchymal scarring. A few scattered subcent imeter calcified granulomas. No pleural effusion or pneumothorax. Mild bilateral lower lobe and lingu la bronchiectasis with a few areas of mucous plugging. Central airways are patent. Mediastinum: Heart size is mildly enlarged. No pericardial effusion. No large vessel abnormality. No mediastinal adenopathy by size criteria. Moderate calcification of the thoracic aorta. Cardiac pacer electrode terminates in the pericardial fat (2). Left ventricular/pericardial calcification and p rominent convexity. Marked coronary vessel calcification. Small hiatal hernia. Chest wall and lower neck: Thyroid is unremarkable. No axillary or supraclavicular adenopathy by size . Bones: No acute fracture. No aggressive appearing lytic or blastic osseous lesion. Marked degenerativ e changes of the lower cervical spine. Mild to moderate multilevel degenerative changes of the thorac ic spine. Upper Abdomen: Limited noncontrast images demonstrate a partially visualized right ureteral stent. Mo derate calcification of the abdominal aorta and branch vessels. IMPRESSION: 1. No suspicious pulmonary nodules or consolidation. Lung RAD: 1 - Negative. Recommendation: Continue annual screening in 12 Months with LDCT 2. Moderate emphysema. 3. Left ventricular/pericardial calcification which may represent sequela of prior infarct. Marked co ronary vessel calcifications. Cardiac electrode terminates in the pericardial fat. Reviewed by: Geovany Johnston MD on 06/12/2023 3:26 PM PST Approved by: Geovany Johnston MD on 06/12/2023 3:26 PM PST Station ID: [id number]
== END 2023-06-12 10:21 | disposition home or self-care (01) ==
LOC: DI 10:20
PROVIDERS: ATTEND Physician Assistant
DX: Z12.2 Encounter for screening for malignant neoplasm of respiratory organs (principal); Z87.891 Personal history of nicotine dependence; J43.2 Centrilobular emphysema; I31.1 Chronic constrictive pericarditis; I25.10 Atherosclerotic heart disease of native coronary artery without angina pectoris; Z95.0 Presence of cardiac pacemaker

== ENCOUNTER 2025-01-16 11:58 | Inpatient (IN) ==
[2025-01-16] MEDS: IPRATROPIUM/ALBUTEROL 3 ML NEB INH STA (12:19)
--- NOTE | 2025-01-16 12:20 | ED Physician Documentation ---
PD HPI DYSPNEA Stated complaint Stated Complaint: SOA Chief complaint Chief Complaint: Resp History obtained from History obtained from: Patient Additional information Additional information: This is a very nice 74-year-old gentleman who has a history of COPD, and he presents today with shortness of breath that has been present for about a week along with some sensation of chest congestion. He has had a cough that occasionally has some [place] sputum but is mostly dry. He states that recently over the last year or so his activity tolerance has been poor but over the last week has been essentially nonexistent getting short of breath just doing things around the house. He states his temperature at home has been around 100, he denies any chest pain, no nasal congestion or sore throat. He uses Spiriva and a s needed albuterol at home, has not been using it more than normal however. Patient has a remote history of smoking but has stopped. Patient later tells me that he has also had some dark urine the last couple of days and feels like he is not voiding quite as easily as normal, perhaps not as much. He is not have any new flank pain, but always has some degree of low back pain. No urgency or frequency. He is on 80 mg of Lasix p.o. daily. He states he has been on this for quite some time, no change in his medication. He also takes 12.5 mg of spironolactone. He has not noted any lower extremity swelling. Denies any difficulty laying flat. Patient normally receives most of his care at [facility]. He sees a joint filler, urologist and home advisor there. He saw his joint filler just a few days ago, and is due to see his urologist later this month. He is unsure of his baseline renal function. Review of Systems Status of ROS: 10 or more systems reviewed and unremarkable except as noted in history and below Meds/Allgy Home Medications Ambulatory Orders Medication Instructions Recorded Confirmed aspirin 81 mg tablet,delayed 81 mg PO DAILY 08/06/17 0 10/29/19 release (Adult Aspirin Regimen) carvedilol 12.5 mg tablet 18.75 mg PO BID 08/06/17 spironolactone 25 mg tablet 12.5 mg PO DAILY 08/06/17 10/29/19 atorvastatin 40 mg tablet 40 mg PO QPM 10/29/19 losartan 25 mg tablet 25 mg PO BID 10/29/19 phenazopyridine 200 mg tablet 200 mg PO TID PRN dysuri a #20 tabs 06/19/20 (Pyridium) Allergies Allergies Allergy/AdvReac Type Severity Reaction Status Date / Time lorazepam AdvReac Anxiety Verified 01/16/25 12:09 PFSH Active Problems All Active Problems (Updated 01/16/25 @ 15:24 by SAHRA Perez) Influenza A (Acute) Acute kidney failure (Acute) Severe chronic obstructive pulmonary disease (Acute) Medical History Medical History (Updated 01/16/25 @ 15:24 by SAHRA Perez) COPD (chronic obstructive pulmonary disease) Surgical History Surgical History (Updated 01/16/25 @ 12:27 by Vidya Garcia RN) AICD (automatic cardioverter/defibrillator) present Social History Social History (Updated 01/16/25 @ 12:27 by Vidya Garcia RN) Smoking Status: Former smoker If you are a former smoker, when did you quit? (Date/Year): 2010 Number of Years Smoked: 40 How many cigarettes a day do you smoke? (20 cigarettes=1 Pk): 1 Do you dip or chew tobacco?: No Do you vape?: No Patient requests smoking cessation consult: No Initiate information on smoking cessation: No Relationship: Do you feel safe in your home environment?: Yes Suffered physical, verbal, emotional, or financial abuse?: No History of Abuse: No POLST Patient has POLST: No Exam Exam Vital Signs: Vital Signs x48h Temp Pulse Resp BP Pulse Ox O2 Flow Rate 01/16/25 15:16 84 16 124/64 93 2 01/16/25 12:19 77 22 2 01/16/25 12:13 2 01/16/25 12:09 37 C 72 24 124/64 92 Constitutional normal general appearance, no apparent distress and average body habitus HENMT normocephalic, nasal mucous membranes normal and oral mucous membranes normal Respiratory no wheezes, no rales and no retractions Severely diminished lung sounds, mild increased work of breathing, no audible wheezes. Cardiovascular normal heart rate noted, regular rhythm noted, no murmur, no JVD, peripheral pulses 2+ throughout and no edema Left chest pacemaker Gastrointestinal abdomen normal to inspection and abdomen soft to palpation Extremities normal to inspection and normal to palpation Skin skin color normal and no rash Results Vitals Vitals: Vital Signs - 24 hr 01/16/25 12:09 01/16/25 12:13 01/16/25 12:19 Temperature 37 C Temperature Source Temporal Artery Scan Pulse Rate 72 77 Respiratory Rate 24 22 Blood Pressure 124/64 O2 Saturation 92 Oxygen Delivery Method Nasal Cannula O2 Source Room air Nasal cannula If not protocol: Oxygen Flow, liters/minute 2 2 Pain Intensity 0 01/16/25 15:16 Temperature Temperature Source Pulse Rate 84 Respiratory Rate 16 Blood Pressure 124/64 O2 Saturation 93 Oxygen Delivery Method O2 Source Nasal cannula If not protocol: Oxygen Flow, liters/minute 2 Pain Intensity Oxygen O2 Source Nasal cannula EKG (time done) 1236: EKG releavant findings:: EKG personally interpreted by author of this note. Relevant findings are: Rate: Rate (enter#) (73) Rhythm: NSR Icard: Normal Intervals: Normal MA QRS: QRS normal Ischemia: Non specific changes Computer interpretation: Agree with computer Labs Labs: Laboratory Tests 01/16/25 01/16/25 01/16/25 12:20 13:48 14:30 WBC 8.0 RBC 3.67 L Hgb 11.1 L Hct 34.5 L MCV 94.0 MCH 30.2 MCHC 32.2 RDW 14.1 Plt Count 231 MPV 10.0 Neut # (Auto) 6.4 Lymph # (Auto) 0.7 L [place] # (Auto) 0.9 Eos # (Auto) 0.0 Baso # (Auto) 0.0 Absolute Nucleated RBC 0.00 Nucleated RBC % 0.0 Sodium 128 L Potassium 4.9 H Chloride 97 L Carbon Dioxide 20 L Anion Gap 11.0 BUN 81 H* Creatinine 3.6 H Estimated GFR (MDRD) 17 L Glucose 117 H Calcium 8.7 Troponin I High Sens 23.6 H* 22.0 H* Urine Color YELLOW Urine Clarity CLOUDY Urine pH 6.0 Ur Specific [place] 1.020 Urine Protein 100 H Urine Glucose (UA) 100 H Urine Ketones NEGATIVE Urine Occult Blood LARGE H Urine Nitrite NEGATIVE Urine Bilirubin NEGATIVE Urine Urobilinogen 0.2 (NORMAL) Ur Leukocyte Esterase SMALL H Urine RBC TNTC H Urine WBC 6-10 H Ur Epithelial Cells RARE Transitional Ur Squamous Epith Cells FEW Squamous Amorphous Sediment Marked Urine Bacteria Few Ur Microscopic Review INDICATED Urine Culture Comments INDICATED Nasal Adenovirus (PCR) NOT DETECTED Nasal B. parapertussis DNA (PCR) NOT DETECTED Nasal Coronavir 229E PCR NOT DETECTED Nasal Coronavir HKU1 PCR NOT DETECTED Nasal Coronavir NL63 PCR NOT DETECTED Nasal Coronavir OC43 PCR NOT DETECTED Nasal Enterovir/Rhinovir PCR NOT DETECTED Nasal Influ A H1 2009 PCR DETECTED A Nasal Influenza B PCR NOT DETECTED Nasal Parainfluen 1 PCR NOT DETECTED Nasal Parainfluen 2 PCR NOT DETECTED Nasal Parainfluen 3 PCR NOT DETECTED Nasal Parainfluen 4 PCR NOT DETECTED Nasal RSV (PCR) NOT DETECTED Nasal B.pertussis DNA PCR NOT DETECTED Nasal C.pneumoniae (PCR) NOT DETECTED Omega Human Metapneumo PCR NOT DETECTED Nasal M.pneumoniae (PCR) NOT DETECTED Nasal SARS-CoV-2 (PCR) NOT DETECTED Rads (name of study) CT abd, chest xray: Relevant Findings:: Final report received PD Medical Decision Making ED course Complexity details: reviewed results, re-evaluated patient, considered differential, d/w patient and d/w family ED course: 74-year-old male presents with shortness of breath, decreased activity tolerance, chest congestion, as well as some urinary symptoms as described in HPI. He is stable appearing here in physical exam, mildly Evoxac initially with SpO2 89 to 90% on room air, placed on 2 L nasal cannula with some improvement. He has diffusely diminished lung sounds and he was given a DuoNeb as well as Solu-Medrol with modest improvement. He is feeling substantially better at this time but continues to have an increased work of breathing, continues to require 2 L nasal cannula and labs are concerning for possible FRANSICO though I have no recent lab work available to me. Patient's CBC is stable with a white count of 8, hemoglobin 11.1 hematocrit 34.5, chemistry shows a sodium 128 potassium 4.9, CO2 20, BUN 81, creatinine 3.6, initial troponin 23.6, repeat 22. Urinalysis suggestive of possible infection with large amount of blood, 6-10 WBCs and small leuk esterase. Culture pending. Respiratory pathogen panel positive for influenza A which is likely contributing to symptoms. Started on ceftriaxone for possible UTI, started on Tamiflu due to duration of flu symptoms not clear he may benefit given his underlying history, and I recommended admission to the hospital for possible FRANSICO, influenza A, hypoxemic respiratory failure, and possible UTI. I have spoken with hospitalist, Soni, who very kindly agrees to admit this patient. Noted over the Discharge Plan Discharge Patient Disposition: 66 [facility] DC/Xfer Clinical Impression: Severe chronic obstructive pulmonary disease, Influenza A Acute kidney failure Qualifiers: Acute renal failure type: unspecified Qualified Code(s): N17.9 - Acute kidney failure, unspecified Prescriptions: No Action carvedilol 12.5 MG tablet 18.75 mg PO BID aspirin [Adult Aspirin Regimen] 81 MG tablet,delayed release (DR/EC) 81 mg PO DAILY spironolactone 25 MG tablet 12.5 mg PO DAILY atorvastatin 40 MG tablet 40 mg PO QPM losartan 25 MG tablet 25 mg PO BID phenazopyridine [Pyridium] 200 MG tablet 200 mg PO TID PRN (Reason: dysuria) Qty: 20 0RF Print Language: Vincentian
[2025-01-16 12:36] LABS: BASOPHILS % (AUTO) 0.3 %; EOSINOPHILS % (AUTO) 0.1 %; HCT - HEMATOCRIT 34.5 % (42.0-52.0); HGB - HEMOGLOBIN 11.1 g/dL (14.0-18.0); LYMPHOCYTES # (AUTO) 0.7 10^3/uL (1.5-3.5); LYMPHOCYTES % (AUTO) 8.3 %; MEAN CORPUSCULAR HEMOGLOBIN 30.2 pg (27.0-31.0); MEAN CORPUSCULAR HGB CONC 32.2 g/dL (32.0-36.0); MONOCYTES # (AUTO) 0.9 10^3/uL (0.0-1.0); MONOCYTES % (AUTO) 10.9 %; NEUTROPHILS # (AUTO) 6.4 10^3/uL (1.5-6.6); PLT - PLATELET COUNT 231 10^3/uL (130-450); RED BLOOD COUNT 3.67 10^6/uL (4.70-6.10); RED CELL DISTRIBUTION WIDTH 14.1 % (12.0-15.0)
--- NOTE | 2025-01-16 13:08 | XRAY Report ---
PROCEDURE: XR Chest 1V INDICATIONS: chest pain TECHNIQUE: One view of the chest was acquired. COMPARISON: 06/12/2023 FINDINGS AND IMPRESSION: Mild lower lung opacities possibly early airspace disease, atelectasis, or aspiration. Consider future imaging surveillance to assess for resolution. Normal heart size. Cardiac leads. Left chest wall pulse generator. Degenerative osseous changes. Reviewed by: Aguila Sapp MD on 01/16/2025 1:07 PM PDT Approved by: Aguila Sapp MD on 01/16/2025 1:07 PM PDT Station ID: [id number]
--- OUTSIDE RECORDS SUMMARY | 2025-01-16 13:09 | EXTERNAL MEDICAL SUMMARY RPT | Continuity of Care Document ---
Author Organization [facility] Address [address] [address] Phone Results/Labs test date facility value unit notes Result panel 1 NUCLEATED RED BLOOD CELLS AUTO 2025-01-16 12:20 [facility] 0.0 /100wbc (missing) BASOPHILS # (AUTO) 2025-01-16 12:20 [facility] 0.0 10 3/ul (missing) EOSINOPHILS # (AUTO) 2025-01-16 12:20 [facility] 0.0 10 3/ul (missing) NRBC ABSOLUTE COUNT (AUTO) 2025-01-16 12:20 [facility] 0 .00 x10 3/ul (missing) LYMPHOCYTES # (AUTO) 2025-01-16 12:20 [facility] 0.7 10 3/ul (missing) MONOCYTES # (AUTO) 2025-01-16 12:20 [facility] 0.9 10 3/ul (missing) MEAN PLATELET VOLUME 2025-01-16 12:20 [facility] 10.0 fl (missing) HGB - HEMOGLOBIN 2025-01-16 12:20 [facility] 11.1 g /dl (missing) RED CELL DISTRIBUTION WIDTH 2025-01-16 12:20 [facility] 14.1 % (missing) PLT - PLATELET COUNT 2025-01-16 12:20 [facility] 231 10 3/ul (missing) RED BLOOD COUNT 2025-01-16 12:20 [facility] 3.67 10 6/ul (missing) MEAN CORPUSCULAR HEMOGLOBIN 2025-01-16 12:20 [facility] 30.2 pg (missing) MEAN CORPUSCULAR HGB CONC 2025-01-16 12:20 [facility] 32 .2 g/dl (missing) HCT - HEMATOCRIT 2025-01-16 12:20 [facility] 34.5 % (missing) NEUTROPHILS # (AUTO) 2025-01-16 12[facility] 6.4 10 3/ul (missing) WHITE BLOOD COUNT 2025-01-16 12:20 [facility] [place] 8.0 x10 3/ul (missing) MEAN CORPUSCULAR VOLUME 2025-01-16 12:20 [facility] [place] 94.0 fl (missing) Social History date description facility
[2025-01-16 13:11] LABS: CALCIUM 8.7 mg/dL (8.5-10.3); CREATININE 3.6 mg/dL (0.6-1.3); POTASSIUM 4.9 mmol/L (3.5-4.5); TROPONIN I HIGH SENSITIVITY 23.6 ng/L (2.3-19.7)
[2025-01-16] MEDS: SODIUM CHLORIDE 0.9% 1,000 ML IV STA (13:26)
[2025-01-16 13:43] LABS: B. PARAPERTUSSIS- RESP PCR PAN NOT DETECTED; B. PERTUSSIS- RESP PCR PANEL NOT DETECTED; C. PNEUMONIAE- RESP PCR PANEL NOT DETECTED; CORONAVIRUS 229E-RESP PCR NOT DETECTED; CORONAVIRUS HKU1-RESP PCR NOT DETECTED; CORONAVIRUS NL63-RESP PCR NOT DETECTED; CORONAVIRUS OC43-RESP PCR NOT DETECTED; HUMAN METAPNEUMOVIRUS NOT DETECTED; INFLUENZA A H1 2009- RESP PCR DETECTED; INFLUENZA B - RESP PCR PANEL NOT DETECTED; M. PNEUMONIAE- RESP PCR PANEL NOT DETECTED; PARAINFLUENZA VIRUS 1 NOT DETECTED; PARAINFLUENZA VIRUS 2 NOT DETECTED; PARAINFLUENZA VIRUS 4 NOT DETECTED; RHINOVIRUS/ENTEROVIRUS NOT DETECTED; RSV- RESP PCR PANEL NOT DETECTED; SARS-CoV-2 -RESP PCR PANEL NOT DETECTED
--- NOTE | 2025-01-16 14:17 | CT Report ---
PROCEDURE: CT Abdomen/Pelvis WO INDICATIONS: FRANSICO, recurrent r stent issues TECHNIQUE: A CT scan of the abdomen and pelvis was performed without the use of intravenous contrast. Images were recorded and evaluated at appropriate window settings. Reformats: coronal and sagittal. For radiation dose reduction, the following was used: automated exposure control, adjustment of mA and/or kV according to patient size. COMPARISON: None. FINDINGS: Image quality: Diagnostic Lower chest: Bibasilar centrilobular nodules, mucous plugging and bronchial wall thickening likely infectious/inflammatory, partially seen. Pericardial calcifications and myocardial apex calcifications likely from prior infarct and inflammation Partially seen electrode leads. Liver: Solid organs are not well assessed without IV contrast. No contour deforming mass Gallbladder and biliary system: Unremarkable, nondilated Pancreas: No ductal dilation Spleen: Nonenlarged Adrenals: No discrete nodules Kidneys: No contour deforming solid mass. Left lower pole suspected cyst is present. No left hydronephrosis. A right ureter stent is present, in expected position. There is mild pelviectasis and ureteral ectasia, without definite obstructing calculus. Moderate right renal atrophy. Tiny nonobstructing calculus in the left posterior calyx. 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 Postsurgical changes are present, not well assessed on noncontrast study. No enlarged lymph nodes by size criteria. Bowel and peritoneum: No small bowel obstruction. No drainable abscess or ascites. There is a moderate rectal stool ball. Colonic diverticulosis. Body wall: Unremarkable Pelvis: Bladder is unremarkable. No definite calculi bladder stone. Prostate bed postsurgical changes, not well assessed on this study. There is questionable asymmetric soft tissue at the right side. Bones: Degenerative osseous findings. IMPRESSION: Right ureteral stent in place, in expected position. No definite obstructing stone identified. Mild ureter and renal pelvis ectasia. No left hydronephrosis. Slightly asymmetric soft tissue at the right posterior the bed, not well assessed on CT. Consider contrast-enhanced pelvis CT or PET CT follow-up for further evaluation depending on clinical context. Many other incidental findings described above. Reviewed by: Aguila Sapp MD on 01/16/2025 2:16 PM PDT Approved by: Aguila Sapp MD on 01/16/2025 2:16 PM PDT Station ID: [id number]
[2025-01-16] MEDS: OSELTAMIVIR 75 MG CAPSULE PO STA (14:41)
[2025-01-16 14:44] LABS: BILIRUBIN,URINE NEGATIVE (NEGATIVE); GLUCOSE, URINE (UA) 100 mg/dL (NEGATIVE); KETONES,URINE (UA) NEGATIVE (NEGATIVE); LEUKOCYTE ESTERASE, URINE SMALL (NEGATIVE); NITRITE,URINE NEGATIVE (NEGATIVE); OCCULT BLOOD,URINE LARGE (NEGATIVE); PROTEIN,URINE 100 mg/dL (NEGATIVE); UROBILINOGEN,URINE 0.2 (NORMAL) E.U./dL (NORMAL)
[2025-01-16 14:46] LABS: CLARITY,URINE CLOUDY (CLEAR)
[2025-01-16 14:58] LABS: AMORPHOUS SEDIMENT,UR Marked /LPF; BACTERIA,URINE Few /HPF (None Seen); EPITHELIAL CELLS,UR RARE Transitional /HPF (<= Few); RBC,URINE TNTC /HPF (0-5); SQUAMOUS EPITHELIAL CELL,UR FEW Squamous (<= Few)
[2025-01-16] MEDS: methylPREDNISolone SUCCINATE 125 MG/2 ML VIAL IVP STA (15:52)
[2025-01-16] MEDS: cefTRIAXone 1 GM in SODIUM CHLORIDE 0.9% MINIBAG 100 ML IV STA (15:52)
--- NOTE | 2025-01-16 16:36 | HISTORY & PHYSICAL EXAMINATION ---
Chief Complaint Chief Complaint Chief Complaint: shortness of air History of Present Illness Admitted From Admitted From:: home History Obtained From Records Reviewed: AVS from cardiology visit 01/07/25 History obtained from: patient and spouse at bedside History of Present Illness HPI Comment/Other: 74-year-old male with a past medical history of coronary artery disease, COPD, heart failure with reduced ejection fraction, CKD stage IV (I do not have accurate data on what his baseline GFR is.) chronic indwelling stents in his ureters, presents to the emergency department with cough and shortness of breath for 5 days now. His son got sick about a week ago and his got sick the day before he got sick. He has tested positive in the emergency department for influenza A. He is on chronic inhalers for his COPD. He is on diuretics for his heart failure with an ejection fraction around 20% and he has this history of renal insufficiency. He also has a history of peripheral vascular disease status post what sounds like iliac or femoral artery bypass. Presents to the ED with cough and chest congestion for duration of 5 days, it is getting worse. He has had poor appetite and has not been sleeping well secondary to the cough. He denies running any fevers at home. He took his Coreg and Entresto this morning but not take his diuretic therapy because he says he just has not been eating and drinking very well. He saw his operator helper at [facility] on January 07 and got a clean bill of health. He has an indwelling AICD. He states it has been several years since he had an echocardiogram. He has a history of prostate cancer which he has elected not to treat. He gets stents placed in his ureters every 6 months. On presentation to the ED he has labs which are significant for sodium of 128, potassium of 4.9, a creatinine of 3.6 (eGFR 17) and a troponin in the low 20s. His respiratory panel is positive for influenza A, his urinalysis is suggestive of urinary tract infection, culture pending, and his chest x-ray shows mild lower lung opacities. He also had a CT of the abdomen pelvis today which shows a right ureteral stent. The lower chest on the CT of the abdomen pelvis shows mucous plugging and bronchial wall thickening and there is moderate right renal atrophy He has not been having any paroxysmal nocturnal dyspnea. He has not been have any lower extremity swelling. He has not been having any chest pain. He has not been having any abdominal pain or difficulty urinating. His appetite has been poor. He lives at home with his Marlee. One of their adult children is currently staying with them due to life circumstances, and their other 2 children live fairly close by. Marlee is his surrogate medical decision maker should he be unable to make his own medical decisions. Patient states he is DNR and would never want to be placed on a ventilator. He has an AICD in place. He quit smoking in 2010. Never drinks alcohol never uses marijuana. He is relatively active for his age having recently built a shed in his backyard. He states he just needs to pace himself and he can do just about anything he wants to do. Meds/Allgy Home Medications Ambulatory Orders Medication Instructions Recorded Confirmed aspirin 81 mg tablet,delayed 81 mg PO DAILY 08/06/17 0 10/29/19 release (Adult Aspirin Regimen) carvedilol 12.5 mg tablet 18.75 mg PO BID 08/06/17 spironolactone 25 mg tablet 12.5 mg PO DAILY 08/06/17 10/29/19 atorvastatin 40 mg tablet 40 mg PO QPM 10/29/19 losartan 25 mg tablet 25 mg PO BID 10/29/19 phenazopyridine 200 mg tablet 200 mg PO TID PRN dysuri a #20 tabs 06/19/20 (Pyridium) Allergies Allergies Allergy/AdvReac Type Severity Reaction Status Date / Time lorazepam AdvReac Anxiety Verified 01/16/25 12:09 [facility] Active Problems All Active Problems (Updated 01/16/25 @ 16:58 by JAQUELINE Conway) Acute respiratory failure with hypoxia (Acute) COPD exacerbation (Acute) Urinary tract infection (Acute) Atypical pneumonia (Acute) Heart failure with reduced ejection fraction (HFrEF, <= 40%) (Acute) Hyperkalemia (Acute) Hyponatremia (Acute) Influenza A (Acute) Acute kidney failure (Acute) Severe chronic obstructive pulmonary disease (Acute) Medical History Medical History (Updated 01/16/25 @ 16:58 by JAQUELINE Conway) COPD (chronic obstructive pulmonary disease) Surgical History Surgical History (Updated 01/16/25 @ 12:27 by Vidya Garcia RN) AICD (automatic cardioverter/defibrillator) present Social History Social History (Updated 01/16/25 @ 12:27 by Vidya Garcia RN) Smoking Status: Former smoker If you are a former smoker, when did you quit? (Date/Year): 2010 Number of Years Smoked: 40 How many cigarettes a day do you smoke? (20 cigarettes=1 Pk): 1 Do you dip or chew tobacco?: No Do you vape?: No Patient requests smoking cessation consult: No Initiate information on smoking cessation: No Relationship: Do you feel safe in your home environment?: Yes Suffered physical, verbal, emotional, or financial abuse?: No History of Abuse: No POLST POLST CPR Status: Do Not Attempt Resuscitation (DNAR) / Allow Natural Patient has POLST: No Level of Medical Intervention: Selective Treatment (DNI. Bipap is fine. ) Review of Systems Status of ROS: 10 or more systems reviewed and unremarkable except as noted in history and below Prior Level of Functionality: Independent Exam Exam Vital Signs: Vital Signs x48h Temp Pulse Resp BP Pulse Ox O2 Flow Rate 01/16/25 15:16 84 16 124/64 93 2 01/16/25 12:19 77 22 2 01/16/25 12:13 2 01/16/25 12:09 37 C 72 24 124/64 92 Constitutional normal general appearance and no apparent distress Well-groomed, does not appear chronically ill. Thin male. HENMT normocephalic, head/scalp atraumatic, hearing grossly normal bilaterally, external ears normal and nasal mucous membranes normal Eyes PERRL and conjunctivae normal Neck/C-Spine visual inspection normal and trachea midline Lymph no lymphadenopathy noted Chest inspection of chest normal and palpation of chest normal Respiratory breath sounds equal bilaterally, normal respiratory effort and no use of accessory muscles Occasional rhonchi Cardiovascular normal heart rate noted Gastrointestinal abdomen normal to inspection and abdomen soft to palpation Back/Pelvis spine normal to inspection Extremities normal to inspection, normal to palpation and no tenderness No pedal edema Neurology silverware supervisor II-XII intact, no movement abnormality noted, no focal motor deficit noted, speech normal and GCS 15 Psychiatry mental status grossly normal, oriented x3, thought process normal, cooperative and memory normal Skin skin color normal and no rash Conclusion/Plan Problem List (1) Acute kidney failure: Plan: This patient has a history of stage IV chronic kidney disease. I am unclear what his baseline creatinine is. He presents with a creatinine of 3.6 and an estimated GFR of 17. He has ureteral stents in place and CT of the abdomen pelvis does not show any hydronephrosis and shows good placement of the stent. He has not been eating or drinking well secondary to his acute illness and this may be contributing to his acute kidney injury. He has received 1 L of IV fluids in the emergency department. He sees a senior corporate accountant at [facility]. His urologist is also at [facility]. My plan for his acute kidney failure is to trend his creatinine and potassium. Additionally I will support him with IV fluids, gently, as he does have a history of heart failure with reduced ejection fraction. I have ordered repeat BMP for the a.m. I have warned the patient that if his creatinine or potassium should continue to rise he will likely require transfer. He prefers transfer to [facility] but realizes that his preferred institution may not have a bed available. Qualifiers: Acute renal failure type: unspecified Qualified Code(s): N17.9 - Acute kidney failure, unspecified (2) Acute respiratory failure with hypoxia: Plan: This patient's presenting chief complaint today is shortness of air. He has a oxygen saturation of 89 to 90% on room air. He has a history of COPD making this an acceptable number for him. At home he is not on home oxygen therapy. Here he is satting in the mid 90s with 2 L via nasal cannula. His CO2 is actually slightly low on his admission labs at 20. He has some mild tachypnea on admission today with a respiratory rate of 24. His respiratory rate has normalized since presentation to the emergency department. He is no longer tachypneic. He appears to be breathing comfortably he is coughing frequently (3) Influenza A: Plan: Influenza A, community-acquired. He has been sick for 5 days, respiratory panel positive for influenza A. His got sick 6 days ago. And his son was the initial person in the household to get sick about a week ago. He denies fever at home, he admits to cough and poor appetite. He has also had fatigue and malaise. Given the severity of his illness we ordered Tamiflu at renal dosing, this is 30 mg daily. I will continue to monitor his respiratory status and treat him for a COPD exacerbation which is secondary to this influenza A infection (4) Atypical pneumonia: Plan: White blood cell count is within normal limits. His CT of the abdomen and pelvis is significant for bibasilar centrilobular nodules, mucous plugging and bronchial wall thickening which is likely infectious/inflammatory. Could be secondary to the influenza A could also be an atypical pneumonia presentation. I am starting this patient on a 3-day course of azithromycin. He is also getting bronchodilators and steroids, see below. (5) COPD exacerbation: Plan: This patient has a history of COPD. He has been a non-smoker since 2010. At home he is on albuterol inhaler as needed as well as Stiolto Respimat 2.5/2.5. He is having decreased exercise tolerance and cough. His imaging is significant for possible atypical pneumonia. He is positive for influenza A. All of this is causing his COPD exacerbation. I have ordered DuoNeb treatments every 4 hours. I have ordered inhaled budesonide as well as Solu-Medrol 40 mg IV 3 times daily. He will receive steroid duration of therapy of less than 5 days. (6) Hyponatremia: Plan: Sodium of 128. I do not know if this patient has chronic hyponatremia. He does not believe that he does. He is not on any SSRIs. He has been eating and drinking poorly for the last 5 days or so secondary to his acute illness. I will start him on a regular diet, I have reduced his Lasix dosing. And I will recheck a BMP in the a.m. (7) Hyperkalemia: Plan: Potassium of 4.9. Patient states that his potassium is normally quite labile. I am holding his home spironolactone. If potassium was checked about 5 hours prior to admission. I will repeat a potassium this afternoon to ensure it is not rising. I will treat him with insulin, glucose, and 20 mg of albuterol for his hyper kalemia if indicated. His EKG today does not show peaked T waves. (8) Heart failure with reduced ejection fraction (HFrEF, <= 40%): Plan: His diagnosis of heart failure with reduced ejection fraction, ejection fraction by history is around 20% according to the patient's . He has not taken his Lasix today. He is normally on Lasix 80 mg a day. He has had decreased p.o. intake. He states he has been peeing less and his urine has been more concentrated. He has not had any peripheral edema he is not have any paroxysmal nocturnal dyspnea. His troponin is within normal limits in the low 20s, BNP was not checked by the ED on admission. Given his lack of pedal edema and his lack of positional dyspnea I doubt this is a heart failure exacerbation I think this is primarily a pulmonary process. This patient is medically fragile given his heart failure on diuretic therapy and his acute kidney injury. For today I will be given him 1 dose of 20 mg of Lasix IV as opposed to his normal 80 mg and I will watch his clinical status. His troponin is not elevated. (9) Urinary tract infection: Plan: Urine culture is pending. His urinalysis is positive for some blood but I wonder if this is always the case given the fact that he has indwelling ureteral stents. He also has a small kidney stone on the left. He has a small amount of leukocyte esterase and 6-10 white blood cells per high-powered field. I believe that given his acute illness, the presence of foreign bodies within the urinary tract is most prudent to treat this patient with Rocephin 1 g IV every 24 hours and follow his urine culture.He had a urinary tract infection sometime in the last 6 months. He states this was treated as an outpatient. He denies any history of drug-resistant bacteria in his urine. Plan Discussed this patient with ED provider, SAHRA Hale, and decision was made to admit him to observation status based on his hypoxia in combination with his renal failure and electrolyte abnormalities. I have spent 85 minutes in the care of this patient today. This includes time [id number], review and ordering of diagnostic imaging and laboratory studies and consultation with other providers. Monitoring the patient's signs symptoms, evaluation of medication effectiveness and patient's response to treatment. Lab Results Lab results reviewed: Yes 01/16/25 12:20 01/16/25 12:20 EKG Results EKG Interpreted Independently: Yes EKG Findings: No peaked T waves no evidence of ischemia Core Measures Anticipated LOS I expect patient to be DC'd or transferred within 96 hours.: Yes DVT/VTE - Prophylaxis VTE/DVT Device ordered at admit?: Yes VTE/DVT Prophylaxis med ordered at admit?: Yes
[2025-01-16] MEDS: AZITHROMYCIN INJ 500 MG in SODIUM CHLORIDE 0.9% 250 ML IV SCH (16:48)
[2025-01-16] MEDS: FUROSEMIDE 20 MG/2 ML VIAL IVP STA (16:48)
[2025-01-16] MEDS ORDERED: ACETAMINOPHEN 325 MG TABLET PO PRN (17:11)
[2025-01-16] MEDS ORDERED: ONDANSETRON 4 MG/2 ML VIAL IVP PRN (17:11)
[2025-01-16] MEDS: SODIUM CHLORIDE FLUSH 0.9% 10 ML SYRINGE IVP SCH (17:22)
[2025-01-16] MEDS: SODIUM CHLORIDE 0.9% 1,000 ML IV SCH (18:07)
[2025-01-16] MEDS: LIDOCAINE 1% 2 ML VIAL MC ONE (18:08)
[2025-01-16] MEDS: BUDESONIDE 0.5 MG/2 ML NEB INH SCH (20:14)
[2025-01-16] MEDS: IPRATROPIUM/ALBUTEROL 3 ML NEB INH PRN (20:19)
[2025-01-16] MEDS: methylPREDNISolone SUCCINATE 40 MG/ML VIAL IVP SCH (21:29)
[2025-01-16] MEDS: ATORVASTATIN 40 MG TABLET PO SCH (21:33)
[2025-01-16] MEDS: guaiFENesin 600 MG TABLET PO SCH (21:34)
[2025-01-16] MEDS: HEPARIN 5,000 UNIT/ML VIAL SUBQ SCH (21:40)
[2025-01-16] MEDS: carvediloL 3.125 MG TABLET PO SCH (21:42)
[2025-01-17 04:48] LABS: HCT - HEMATOCRIT 28.8 % (42.0-52.0); HGB - HEMOGLOBIN 9.7 g/dL (14.0-18.0); LYMPHOCYTES # (AUTO) 0.4 10^3/uL (1.5-3.5); LYMPHOCYTES % (AUTO) 7.4 %; MEAN CORPUSCULAR HEMOGLOBIN 31.2 pg (27.0-31.0); MEAN CORPUSCULAR HGB CONC 33.7 g/dL (32.0-36.0); MEAN CORPUSCULAR VOLUME 92.6 fL (80.0-94.0); MONOCYTES # (AUTO) 0.2 10^3/uL (0.0-1.0); MONOCYTES % (AUTO) 3.8 %; NEUTROPHILS # (AUTO) 4.7 10^3/uL (1.5-6.6); NEUTROPHILS % (AUTO) 88.6 %; PLT - PLATELET COUNT 213 10^3/uL (130-450); RED BLOOD COUNT 3.11 10^6/uL (4.70-6.10); RED CELL DISTRIBUTION WIDTH 14.4 % (12.0-15.0); WHITE BLOOD COUNT 5.3 x10^3/uL (4.8-10.8)
[2025-01-17 05:07] LABS: CALCIUM 7.9 mg/dL (8.5-10.3); CREATININE 2.8 mg/dL (0.6-1.3); MAGNESIUM 1.9 mg/dL (1.7-2.3); POTASSIUM 4.3 mmol/L (3.5-4.5)
[2025-01-17] MEDS: SODIUM CHLORIDE FLUSH 0.9% 10 ML SYRINGE IVP PRN (05:42)
[2025-01-17] MEDS: ASPIRIN EC 81 MG TABLET PO SCH (08:18)
[2025-01-17] MEDS: OSELTAMIVIR 30 MG CAPSULE PO SCH (08:19)
[2025-01-17] MEDS: guaiFENesin 600 MG TABLET PO SCH (08:20)
[2025-01-17] MEDS: cefTRIAXone 1 GM VIAL IVP SCH (08:22)
[2025-01-17] MEDS: FAMOTIDINE 20 MG TABLET PO SCH (08:40)
--- NOTE | 2025-01-17 14:58 | Discharge Summary ---
"Discharge Summary Admit Date: 01/16/25 Discharge Date: 01/17/25 Discharging Provider: Soni Hendrix PA-C Primary Care Provider: René Pratt MD Code Status: Do Not Attempt Resuscitation DIAGNOSES Discharge Diagnoses with Status of Each Condition: Acute kidney failure, baseline creatinine unknown. Improving. Acute hypoxic respiratory failure, resolved. Influenza A infection Atypical pneumonia COPD exacerbation Hyponatremia Hyperkalemia Heart failure with reduced ejection fraction Suspected urinary tract infection, culture negative. HPI History of Present Illness: 74-year-old male with a past medical history of coronary artery disease, COPD, heart failure with reduced ejection fraction, CKD stage IV (I do not have accurate data on what his baseline GFR is.) chronic indwelling stents in his ureters, presents to the emergency department with cough and shortness of breath for 5 days now. His son got sick about a week ago and his got sick the day before he got sick. He has tested positive in the emergency department for influenza A. He is on chronic inhalers for his COPD. He is on diuretics for his heart failure with an ejection fraction around 20% and he has this history of renal insufficiency. He also has a history of peripheral vascular disease status post what sounds like iliac or femoral artery bypass. Presents to the ED with cough and chest congestion for duration of 5 days, it is getting worse. He has had poor appetite and has not been sleeping well secondary to the cough. He denies running any fevers at home. He took his Coreg and Entresto this morning but not take his diuretic therapy because he says he just has not been eating and drinking very well. He saw his wharf hand at [facility] on January 07 and got a clean bill of health. He has an indwelling AICD. He states it has been several years since he had an echocardiogram. He has a history of prostate cancer which he has elected not to treat. He gets stents placed in his ureters every 6 months. On presentation to the ED he has labs which are significant for sodium of 128, potassium of 4.9, a creatinine of 3.6 (eGFR 17) and a troponin in the low 20s. His respiratory panel is positive for influenza A, his urinalysis is suggestive of urinary tract infection, culture pending, and his chest x-ray shows mild lower lung opacities. He also had a CT of the abdomen pelvis today which shows a right ureteral stent. The lower chest on the CT of the abdomen pelvis shows mucous plugging and bronchial wall thickening and there is moderate right renal atrophy He has not been having any paroxysmal nocturnal dyspnea. He has not been have any lower extremity swelling. He has not been having any chest pain. He has not been having any abdominal pain or difficulty urinating. His appetite has been poor. He lives at home with his Marlee. One of their adult children is currently staying with them due to life circumstances, and their other 2 children live fairly close by. Marlee is his surrogate medical decision maker should he be unable to make his own medical decisions. Patient states he is DNR and would never want to be placed on a ventilator. He has an AICD in place. He quit smoking in 2010. Never drinks alcohol never uses marijuana. He is relatively active for his age having recently built a shed in his backyard. He states he just needs to pace himself and he can do just about anything he wants to do. CONSULTS | PROCEDURES Procedures: Chest x-ray: Mild lower lung opacities possibly early airspace disease, atelectasis, or aspiration. Consider future imaging surveillance to assess for resolution. Normal heart size, left chest wall pulse generator in place. Degenerative osseous changes. CT abdomen pelvis: Right ureteral stent in place in expected position. No definite obstructing stone identified. Mild ureter and renal pelvis ectasia. No left hydronephrosis. Slightly asymmetric soft tissue at the right posterior. Not well assessed on CT. Multiple incidental findings. HOSPITAL COURSE Hospital Course: 74-year-old male who presented to the emergency department with shortness of air, acute hypoxic respiratory failure and elevated creatinine combined with hyperkalemia. He tested positive for influenza A. He was requiring 2 L of oxygen via nasal cannula to maintain oxygen saturation in the low to mid 90s. He was therefore admitted for acute hypoxic respiratory failure. He was placed on antibiotics for community-acquired pneumonia and Tamiflu for influenza A although he had been sick for almost a week at that point. His urine was suggestive of urinary tract infection however cultures subsequently were negative. His creatinine was 3.6 on admission with a potassium of 5.1. With symptomatic treatment of his respiratory failure, pneumonia and influenza A infection his hyperkalemia resolved and his creatinine came down to 2.8. He had a mild hyponatremia of 128 on admission which improved to 131 by the time of discharge. On the morning of hospital day 2 the patient was still requiring supplemental oxygen and I presume that he would need to stay at least 1 additional night. However, by 1:00 in the afternoon the patient was satting normally on room air and desperately wanted to go home. I told him my preference was to keep him an additional night as I did not know what his baseline creatinine was I would like to see his renal function improved slightly and continue to monitor his electrolytes and oxygenation. However he truly wanted to go home to recover. He was therefore discharged to home to finish a course of treatment for community-acquired pneumonia, influenza A and a COPD exacerbation. He will discharge to home on all of his usual medications without changes. ALLERGIES Allergies Allergy/AdvReac Type Severity Reaction Status Date / Time lorazepam AdvReac Anxiety Verified 01/16/25 12:09 MEDICATIONS Ambulatory Orders Medication Instructions Recorded Confirmed aspirin 81 mg tablet,delayed 81 mg PO DAILY 08/06/17 0 01/17/25 release (Adult Aspirin Regimen) carvedilol 12.5 mg tablet 12.5 mg PO BID 08/06/1701/02 spironolactone 25 mg tablet 25 mg PO DAILY 08/06/17 atorvastatin 40 mg tablet 40 mg PO QPM 10/29/19 losartan 25 mg tablet 25 mg PO BID 10/29/19 albuterol sulfate 90 mcg/actuation 1 inh inhalation CA N PRN shortness 01/17/25 01/17/25 aerosol inhaler (Ventolin HFA) of breath or wheezing amoxicillin 875 mg-potassium 1 tab PO BID #6 tabs 01/02 01/26 clavulanate 125 mg tablet azithromycin 500 mg tablet 500 mg PO DAILY #1 tab 01/02 01/26 (Zithromax) empagliflozin 10 mg tablet 10 mg PO DAILY 01/17/25 (Jardiance) ferrous sulfate 325 mg (65 mg 325 mg PO QAM 01/17/25 0 01/17/25 iron) tablet,delayed release furosemide 40 mg tablet 80 mg PO DAILY 01/17/2501/02 isosorbide mononitrate 30 mg 60 mg PO DAILY 01/17/25 0 01/17/25 tablet,extended release 24 hr oseltamivir 30 mg capsule (Tamiflu) 30 mg PO DAILY 3 d ays #3 caps 01/17/25 prednisone 20 mg tablet 40 mg (2 x 20 mg) PO DAILY # 6 tabs 01/17/25 sacubitril 97 mg-valsartan 103 mg 0.5 tab PO BID 01/1701/17/25 tablet (Entresto) tiotropium 2.5 mcg-olodaterol 2.5 2 inh inhalation ALAN LY 01/17/25 01/17/25 mcg/actuation mist for inhalation (Stiolto Respimat) PHYSICAL EXAM AT DISCHARGE Vital Signs: Vital Signs x48h Temp Pulse Resp BP Pulse Ox 01/17/25 16:03 36.6 C 86 23 117/59 L 90 L General Appearance: positive No acute distress and Alert Eyes Bilateral: positive Normal inspection and Conjunctivae nml ENT: positive ENT inspection nml Neck: positive Nml inspection Respiratory: positive No respiratory distress and Breath sounds nml Cardiovascular: positive Regular rate & rhythm Abdomen: positive Non-tender Skin: positive Color nml and No rash Extremities: positive No pedal edema Neurologic/Psychiatric: positive Oriented x3 LABS 01/17/25 04:06 01/17/25 04:06 FOLLOW UP Follow Up: PCP, Dr. Pratt within the next week. Should have repeat BMP at that time. TIME SPENT Time Spent in Discharge (Minutes): 35 Discharge Plan Discharge Patient Disposition: 01 Home, Self Care Prescriptions: New prednisone 20 mg tablet 40 mg PO DAILY Qty: 6 0RF Rx Instructions: Take in the morning with food for 3 days only oseltamivir [Tamiflu] 30 mg capsule 30 mg PO DAILY 3 Days Qty: 3 0RF azithromycin [Zithromax] 500 mg tablet 500 mg PO DAILY Qty: 1 0RF amoxicillin-pot clavulanate 875-125 mg tablet 1 tab PO BID Qty: 6 0RF Continued carvedilol 12.5 MG tablet 12.5 mg PO BID aspirin [Adult Aspirin Regimen] 81 MG tablet,delayed release (DR/EC) 81 mg PO DAILY spironolactone 25 MG tablet 25 mg PO DAILY atorvastatin 40 MG tablet 40 mg PO QPM losartan 25 MG tablet 25 mg PO BID Jardiance 10 mg tablet 10 mg PO DAILY furosemide 40 mg tablet 80 mg PO DAILY Patient Comments: take 2 tablets by mouth every morning MAY ALSO TAKE 1 TABLET BY Mouth if needed isosorbide mononitrate 30 mg tablet extended release 24 hr 60 mg PO DAILY Patient Comments: take 2 tablets by mouth once daily ferrous sulfate 325 mg (65 mg iron) tablet,delayed release (DR/EC) 325 mg PO QAM Patient Comments: take 1 tablet by mouth once daily WITH BREAKFAST Stiolto Respimat 2.5-2.5 mcg/actuation mist 2 inh INHALATION DAILY Patient Comments: inhale 2 puffs by mouth and INTO THE LUNGS once daily Entresto 97-103 mg tablet 0.5 tab PO BID albuterol sulfate [Ventolin HFA] 90 mcg/actuation HFA aerosol inhaler 1 inh inhalation PRN PRN (Reason: shortness of breath or wheezing) Activity Restrictions: Activity as Tolerated Diet: Regular Health Concerns: You came into the hospital because you had the flu and had gotten very low on your oxygen levels. I do not think your low oxygen level was due to your heart failure, I think it was due to your COPD combined with the influenza A and possibly a pneumonia. You had gotten so sick that your kidneys had started to fail. Overnight, you were treated with steroids, antibiotics and antiviral medications. I am giving all of these to you in pill form to go home with. All 4 of these meds can be started on Friday morning, as you have gotten enough doses today. I want you to restart your Lasix on Friday as well. This afternoon you have been able to transition off of oxygen. Your shortness of breath is much less and you are asking to go home. Your kidney number has gone from 3.6 to 2.8 which is an improvement. Your potassium has normalized and your sodium is improving. In an ideal world, I would like to keep you until tomorrow and make sure your kidneys continue to improve, but you would like to go home. I will send a copy of this paperwork to Dr Pratt. I want you to call his office on and make arrangements to get blood work checked later this week. I want you to have your kidneys and your potassium checked. . Care Plan Goals: Finish all antibioitics. antivirals and prednisone. Make sure to take prednisone in the morning with food. Come back to the hospital if you are feeling short of breath. Print Language: Chinese Patient Instructions: ED Influenza (Adult) Follow-up Care: René Pratt MD [Primary Care Provider] -"
[2025-01-17 16:04] VITALS: BP 117/59; TEMP 97.9; O2SAT 90
--- NOTE | 2025-01-17 17:21 | PHARMACY PROGRESS NOTE ---
Best Possible Medication History Admit Date and Time: 01/17/25 1150 Home Medications Medication Instructions Recorded Confirmed Type aspirin 81 mg tablet,delayed 81 mg PO DAILY 08/06/17 0 01/17/25 History release (Adult Aspirin Regimen) carvedilol 12.5 mg tablet 12.5 mg PO BID 08/06/1701/02 History spironolactone 25 mg tablet 25 mg PO DAILY 08/06/17 History atorvastatin 40 mg tablet 40 mg PO QPM 10/29/19 History losartan 25 mg tablet 25 mg PO BID 10/29/19 History albuterol sulfate 90 mcg/actuation 1 inh inhalation IL N PRN shortness 01/17/25 01/17/25 History aerosol inhaler (Ventolin HFA) of breath or wheezing amoxicillin 875 mg-potassium 1 tab PO BID #6 tabs 01/02 01/26 Rx clavulanate 125 mg tablet azithromycin 500 mg tablet 500 mg PO DAILY #1 tab 01/02 01/26 Rx (Zithromax) empagliflozin 10 mg tablet 10 mg PO DAILY 01/17/25 History (Jardiance) ferrous sulfate 325 mg (65 mg 325 mg PO QAM 01/17/25 0 01/17/25 History iron) tablet,delayed release furosemide 40 mg tablet 80 mg PO DAILY 01/17/2501/02 History isosorbide mononitrate 30 mg 60 mg PO DAILY 01/17/25 0 01/17/25 History tablet,extended release 24 hr oseltamivir 30 mg capsule (Tamiflu) 30 mg PO DAILY 3 d ays #3 caps 01/17/25 Rx prednisone 20 mg tablet 40 mg (2 x 20 mg) PO DAILY # 6 tabs 01/17/25 Rx sacubitril 97 mg-valsartan 103 mg 0.5 tab PO BID 01/1701/17/25 History tablet (Entresto) tiotropium 2.5 mcg-olodaterol 2.5 2 inh inhalation ALAN LY 01/17/25 01/17/25 History mcg/actuation mist for inhalation (Stiolto Respimat) Processed by: Pharmacy (DRYING MACHINE RECEIVERCINDY) Medications reviewed in ED?: No Medication History completed: Yes Patient Interview: Completed Secondary Source(s): Spouse/Significant other, Pharmacy records and Insurance records [facility] Statement: As the person ultimately responsible for medication therapy, providers are able to order a medication from an existing home medication list in [facility] via the "Reconcile Routine" prior to Confirmation of that medication by sales support coordinator. Such practice is discouraged except when the physician, in their clinical judgment, deems that a medical need exists for a medication without regard to previous use.
== END 2025-01-17 16:30 | disposition home or self-care (01) | DRG 189 ==
LOC: ED 11:58 → MS2 11:58
PROVIDERS: ADMIT Physician Assistant Medical; ATTEND Physician Assistant Medical
DX: I25.10 Atherosclerotic heart disease of native coronary artery without angina pectoris; Z79.82 Long term (current) use of aspirin; J10.00 Influenza due to other identified influenza virus with unspecified type of pneumonia; I50.23 Acute on chronic systolic (congestive) heart failure; Z66 Do not resuscitate; J96.01 Acute respiratory failure with hypoxia; Z87.891 Personal history of nicotine dependence; J44.0 Chronic obstructive pulmonary disease with (acute) lower respiratory infection; I73.9 Peripheral vascular disease, unspecified; E87.1 Hypo-osmolality and hyponatremia; N39.0 Urinary tract infection, site not specified; Z95.810 Presence of automatic (implantable) cardiac defibrillator; J44.1 Chronic obstructive pulmonary disease with (acute) exacerbation; N18.4 Chronic kidney disease, stage 4 (severe); E87.5 Hyperkalemia; C61 Malignant neoplasm of prostate; N17.9 Acute kidney failure, unspecified